=== PATIENT | female | born 1950 | race Caucasian/White ===

== ENCOUNTER 2018-01-18 17:21 | Emergency (ER) | payer MEDICARE, OTHER ==
[~2018-01-18] VITALS: Ht 165.1 cm; Wt 72.6 kg
[~2018-01-18 17:21] MED LIST: TYLENOL; Z.0.LOSARTAN POTASS2; Z.0.SYNTHROID88 MCG
[2018-01-18] MEDS ORDERED: KETOROLAC TROMETHAMINE 30 MG/ML VIAL IV STA (17:34)
[2018-01-18] MEDS ORDERED: SODIUM CHLORIDE 0.9% 1000ML 1,000 ML IV STA (17:34)
[2018-01-18] MEDS ORDERED: ASPIRIN 81 MG CHEW TAB PO ONE (17:45)
[2018-01-18 18:02] LABS: BASOPHILS % 0.5 % (0.0-1.0); EOSINOPHILS % 0.4 % (0.0-6.0); HEMATOCRIT 39.7 % (34.2-44.1); HEMOGLOBIN 13.7 g/dL (12.0-16.0); LYMPHOCYTES # (AUTO) 1.8 (1.0-3.2); LYMPHOCYTES % 23.2 % (18.0-39.1); MEAN CORPUSCULAR HEMOGLOBIN 28.3 pg (28-32); MEAN CORPUSCULAR HGB CONC 34.5 g/dL (31-35); MONOCYTES # (AUTO) 0.9 (0.2-0.8); MONOCYTES % 10.8 % (4.4-11.3); NEUTROPHILS # (AUTO) 4.8 (2.1-6.9); NEUTROPHILS % 61.7 % (38.7-80.0); PLATELET COUNT 329 x10e3/uL (140-360); RED BLOOD COUNT 4.84 x10e6/uL (3.6-5.1); RED CELL DISTRIBUTION WIDTH 13.4 % (11.7-14.4)
[2018-01-18 18:19] LABS: BILIRUBIN,URINE NEGATIVE (NEGATIVE); CLARITY,URINE CLEAR (CLEAR); COLOR,URINE YELLOW (YELLOW); KETONES,URINE NEGATIVE (NEGATIVE); LEUKOCYTE ESTERASE ,URINE NEGATIVE (NEGATIVE); NITRITE,URINE NEGATIVE (NEGATIVE); PROTEIN,URINE DIPSTICK NEGATIVE (NEGATIVE); URINE UROBILINOGEN 0.2 mg/dL (0.2 - 1)
[2018-01-18 18:22] LABS: ALANINE AMINOTRANSFERASE 17 IU/L (0-55); ALBUMIN 4.5 g/dL (3.5-5.0); ALBUMIN/GLOBULIN RATIO 1.3 (0.8-2.0); ALKALINE PHOSPHATASE 73 IU/L (40-150); ANION GAP 12.5 mmol/L (8-16); BLOOD UREA NITROGEN 13 mg/dL (7-26); BUN/CREATININE RATIO 16 (6-25); CALCIUM 9.6 mg/dL (8.4-10.2); CARBON DIOXIDE 28 mmol/L (22-29); CHLORIDE 102 mmol/L (98-107); CREATINE KINASE 58 IU/L (29-168); CREATININE, SERUM 0.81 mg/dL (0.57-1.11); EST GLOMERULAR FILTRATION RATE > 60 ML/MIN (60-); GLUCOSE 113 mg/dL (74-118); POTASSIUM 3.5 mmol/L (3.5-5.1); SODIUM 139 mmol/L (136-145)
[2018-01-18 18:30] LABS: BACTERIA,URINE RARE /HPF; EPITHELIAL CELLS,URINE FEW /LPF; MUCUS,URINE FEW (RARE); WBC,URINE (MAN) 0-5 /HPF (0-5)
--- NOTE | 2018-01-18 18:41 | Diagnostic Imaging Report ---
Exam: Head CT without contrast History: Dizziness, headache Comparison studies: Head CT of 11/08/2016 and 03/18/2009. Technique: Axial images were obtained from the skull base to the vertex. Coronal and sagittal images reconstructed from the axial data. Intravenous contrast: None Findings: Scalp: No abnormalities. Bones: No fractures, blastic or lytic lesions. Brain sulci: Mildly prominent. Ventricles: Mild compensatory dilatation no hydrocephalus. Extra-axial spaces: No masses, no fluid collection. Parenchyma: No mass, acute hemorrhage or acute cortical vascular insults. A few scattered hypodensities in the supratentorial white matter are nonspecific but most compatible with chronic small vessel ischemic changes. Hypodensities in the anterior limbs of the bilateral internal capsules, head of the right caudate nucleus, bilateral subinsular white matter and in the bifrontal superior frontal white matter reflect small chronic lacunar infarcts or possibly anatomical variant prominent perivascular spaces. Sellar/suprasellar region: No abnormalities. Craniocervical junction: Patent foramen magnum. No Chiari one malformation. Incidental findings: Atherosclerotic calcifications in the carotid siphons. IMPRESSION: No acute intracranial abnormalities. No changes from the previous head CT of 11/08/2016. Chronic findings: 1. Mild generalized volume loss. 2. Mild supratentorial microvascular ischemic changes. Signed by: Dr. Jh Bowen M.D. on 01/18/2018 6:38 PM
[2018-01-18] MEDS ORDERED: ACETAMINOPHEN 325 MG TAB PO ONE (19:15)
[2018-01-18 19:20] LABS: EOSINOPHILS % (MANUAL) 5 % (0-7); LYMPHOCYTES % (MANUAL) 18 % (19-48); MONOCYTES % (MANUAL) 11 % (3.4-9.0); NEUTROPHILS % (MANUAL) 63 % (40-74); PLATELET ESTIMATE ADEQUATE; PLATELET MORPHOLOGY COMMENT NORMAL; RBC MORPHOLOGY COMMENT NORMAL
[2018-01-18 19:35] VITALS: BP 168/85
== END 2018-01-18 19:37 | disposition home or self-care (01) ==
LOC: ER 17:21
DX: R42 Dizziness and giddiness (principal); R51 Headache
CPT/HCPCS: 36415; 70450; 80053; 81001; 82550; 82553; 84484; 85025; 93005; 99284; J1885; J7030

== ENCOUNTER → 2018-03-07 | Outpatient (CLI) | payer MEDICARE, OTHER ==
--- NOTE | 2018-03-07 13:16 | Diagnostic Imaging Report ---
PROCEDURE:US RETROPERITONEAL ( KIDNEY ). COMPARISON:Report from an MR CP 04/30/2014 was available for review.. INDICATIONS:Cyst Of Kidney TECHNIQUE: Cortez-scale and color sonographic images of the bilateral kidneys and bladder where obtained in transverse and longitudinal planes. FINDINGS: RIGHT KIDNEY: 11.4 cm in length, cortical thickness 1.5 cm Cysts: Minimally complex cyst with an echogenic focus along its wall measuring 1.4 x 1.3 x 1.6 cm. Simple cyst projecting exophytically from the lower pole measures 0.8 x 0.7 x 0.7 cm. Solid masses: None Stones: Suspected nonobstructing calculus measuring 0.4 cm within the renal sinus. Hydronephrosis: None Echogenicity: Normal renal cortical echogenicity. LEFT KIDNEY: 11.4 cm in length, cortical thickness 2.1 cm. Cysts: Simple cyst projecting from the upper pole measuring 6.7 x 6.5 x 6.6 cm, stable in size in comparison to the report from the MRCP performed at 2013. Additional simple cyst projects from the lower pole and measures 1.3 x 1.2 x 1.4 cm. Solid masses: None Stones: None Hydronephrosis: None Echogenicity: Normal renal cortical echogenicity. Bladder: Unremarkable. Right and left ureteral jets are identified. CONCLUSION: Bilateral renal cysts measuring up to 6.7 cm on the left. One of the right renal cysts is minimally complex, and followup renal ultrasound in one year should be considered to assess for stability. Dictated by: Jh Barrios M.D. on 03/07/2018 at 13:17 Electronically approved by: Jh Barrios M.D. on 03/07/2018 at 13:17
== END ==
LOC: US 11:42
PROVIDERS: ATTEND Urology
DX: N28.1 Cyst of kidney, acquired (principal)
CPT/HCPCS: 76770

== ENCOUNTER 2018-04-25 02:49 | Emergency (ER) | payer MEDICARE, OTHER ==
[~2018-04-25] VITALS: Ht 165.1 cm; Wt 72.6 kg
[2018-04-25] MEDS ORDERED: MECLIZINE HCL 12.5 MG TAB ONE (03:06)
[2018-04-25 03:10] LABS: BASOPHILS % 0.4 % (0.0-1.0); EOSINOPHILS # (AUTO) 0.1 (0.0-0.4); EOSINOPHILS % 0.7 % (0.0-6.0); HEMATOCRIT 38.5 % (34.2-44.1); HEMOGLOBIN 13.3 g/dL (12.0-16.0); LYMPHOCYTES # (AUTO) 1.4 (1.0-3.2); LYMPHOCYTES % 18.3 % (18.0-39.1); MEAN CORPUSCULAR HEMOGLOBIN 28.1 pg (28-32); MEAN CORPUSCULAR HGB CONC 34.5 g/dL (31-35); MEAN CORPUSCULAR VOLUME 81.4 fL (81-99); MONOCYTES # (AUTO) 0.7 (0.2-0.8); MONOCYTES % 9.5 % (4.4-11.3); NEUTROPHILS # (AUTO) 5.2 (2.1-6.9); NEUTROPHILS % 69.1 % (38.7-80.0); PLATELET COUNT 289 x10e3/uL (140-360); RED BLOOD COUNT 4.73 x10e6/uL (3.6-5.1); RED CELL DISTRIBUTION WIDTH 12.7 % (11.7-14.4)
[2018-04-25] MEDS ORDERED: MECLIZINE HCL 12.5 MG TAB PO ONE (03:15)
[2018-04-25 03:23] LABS: BILIRUBIN,URINE NEGATIVE (NEGATIVE); CLARITY,URINE CLEAR (CLEAR); COLOR,URINE YELLOW (YELLOW); KETONES,URINE 1+ (NEGATIVE); LEUKOCYTE ESTERASE ,URINE NEGATIVE (NEGATIVE); NITRITE,URINE NEGATIVE (NEGATIVE); PROTEIN,URINE DIPSTICK TRACE (NEGATIVE); URINE UROBILINOGEN 0.2 mg/dL (0.2 - 1)
[2018-04-25 03:25] LABS: EPITHELIAL CELLS,URINE FEW /LPF; WBC,URINE (MAN) 0-5 /HPF (0-5)
[2018-04-25 03:28] LABS: ALANINE AMINOTRANSFERASE 15 IU/L (0-55); ALBUMIN 4.4 g/dL (3.5-5.0); ALBUMIN/GLOBULIN RATIO 1.2 (0.8-2.0); ALKALINE PHOSPHATASE 95 IU/L (40-150); ANION GAP 16.1 mmol/L (8-16); BLOOD UREA NITROGEN 9 mg/dL (7-26); BUN/CREATININE RATIO 13 (6-25); CALCIUM 9.4 mg/dL (8.4-10.2); CARBON DIOXIDE 25 mmol/L (22-29); CHLORIDE 92 mmol/L (98-107); CREATINE KINASE 81 IU/L (29-168); CREATININE, SERUM 0.68 mg/dL (0.57-1.11); EST GLOMERULAR FILTRATION RATE > 60 ML/MIN (60-); GLUCOSE 147 mg/dL (74-118); POTASSIUM 3.1 mmol/L (3.5-5.1); SODIUM 130 mmol/L (136-145)
[2018-04-25] MEDS ORDERED: POTASSIUM CHLORIDE 20 MEQ TAB CR PO STA (03:39)
--- NOTE | 2018-04-25 04:26 | Diagnostic Imaging Report ---
EXAM: CHEST SINGLE (PORTABLE), AP 1 view INDICATION: DISI COMPARISON: None FINDINGS: LINES/TUBES: None LUNGS: Mild bibasilar atelectasis. PLEURA: No effusions or pneumothorax. HEART AND MEDIASTINUM: Normal size and contour. BONES AND SOFT TISSUES: No acute findings. IMPRESSION: Mild bibasilar atelectasis. Signed by: Dr. Maria Del Carmen Medrano M.D. on 04/25/2018 4:20 AM
--- NOTE | 2018-04-25 04:37 | Diagnostic Imaging Report ---
Examination: CT head without contrast Clinical Indication: Dizziness, nausea. Technique: Transaxial noncontrast images from the skull base through the vertex were obtained. Sagittal and coronal reformatted images were done. Comparison: Head CT dated 01/18/2018. Findings: Scalp: No abnormalities. Bones: Intact. No fractures. No blastic or lytic lesions. Brain sulci: Mild volume loss for patient's age. Ventricles: No hydrocephalus. Extra-axial space: No abnormalities. Parenchyma: Again demonstrated are patchy areas of low-attenuation within subcortical and periventricular white matter, nonspecific, but could represent microvascular ischemic disease. No masses, hemorrhage, or acute or chronic cortical based vascular insults. Suprasellar region: No abnormalities. Craniocervical junction: The foramen magnum is patent. No Chiari one malformation. Incidental findings: Atherosclerotic calcification of the cavernous and supraclinoid internal carotid arteries. Impression: 1. No new or acute intracranial finding. No change from prior head CT dated 01/18/2018. 2. Unchanged mild chronic microvascular ischemic change and volume loss. Signed by: Dr. Sandra Mendieta M.D. on 04/25/2018 4:34 AM
[2018-04-25 04:48] VITALS: BP 150/86
== END 2018-04-25 05:05 | disposition home or self-care (01) ==
LOC: ER 02:49
DX: R42 Dizziness and giddiness (principal); R11.0 Nausea; H81.11 Benign paroxysmal vertigo, right ear; I10 Essential (primary) hypertension; E03.9 Hypothyroidism, unspecified; E78.00 Pure hypercholesterolemia, unspecified
CPT/HCPCS: 36415; 70450; 71045; 80053; 81001; 82550; 82553; 84484; 85025; 93005; 99284

== ENCOUNTER → 2019-03-07 | Outpatient (CLI) | payer MEDICARE, OTHER ==
--- NOTE | 2019-03-07 16:39 | Diagnostic Imaging Report ---
EXAM: Renal Ultrasound INDICATION: Renal cyst. COMPARISON: Renal ultrasound 03/07/2018. CT abdomen/pelvis with contrast 12/30/2009. TECHNIQUE: Transverse and longitudinal images of the kidneys and bladder were obtained. FINDINGS: Right Kidney: Length: 11.3 cm, the renal cortex measures 1.1 cm Appearance: Normal echogenicity. Collecting system: No hydronephrosis Stones: None Cyst/Mass: Minimally complex right lower pole renal cyst with echogenic focus along the wall, measuring up to 1.5 x 1.3 x 1.6 cm, not significantly changed from prior ultrasound on 03/07/2018, when it measured 1.4 x 1.3 x 1.6 cm. No associated doppler flow. Simple appearing cyst in the right lower pole kidney, measuring up to 1.6 x 1.3 x 0.7 cm, increased in size from prior ultrasound, when measured 0.8 x 0.7 x 0.7 cm. No evidence of solid mass. Left Kidney: Length: 12.4 cm, the renal cortex measures 1.8 cm. Appearance: Normal echogenicity. Collecting system: No hydronephrosis Stones: None Cyst/Mass: Unchanged appearance of simple appearing cyst in the upper pole, measuring up to 6.8 x 6.7 x 5.9 cm, previously 6.7 x 6.5 x 6.6 cm. Similar appearance of left mid pole simple appearing cyst, measuring up to 1.3 x 1.0 x 1.8 cm, previously 1.3 x 1.2 x 1.4 cm, accounting for differences in technique. Bladder: Unremarkable in appearance. Bilateral ureteral jets are seen. The prevoid volume is 76 cc. No post void volume. IMPRESSION: Unchanged appearance of minimally complex right lower pole renal cyst. Follow-up ultrasound is suggested in one year to document stability. Additional bilateral simple appearing renal cysts, with interval increase in size of a right lower pole simple cyst. Signed by: Dr. Rich Villanueva MD on 03/07/2019 4:35 PM
== END ==
LOC: US 12:23
PROVIDERS: ATTEND Urology
DX: N28.1 Cyst of kidney, acquired (principal)
CPT/HCPCS: 76770

== ENCOUNTER → 2019-06-15 | Outpatient (CLI) | payer MEDICARE, OTHER ==
--- NOTE | 2019-06-15 11:36 | Diagnostic Imaging Report ---
Exam: KUB - 2 views Clinical History: Renal calculus Comparison: Renal ultrasound of 03/07/2019 Findings: No radiographically apparent renal calculi. Nonobstructive bowel gas pattern. No free air. Status post cholecystectomy. General changes of the lower lumbar spine and both hip joints. Phleboliths in the pelvis. Impression: No radiographically apparent renal calculi. Signed by: Niesha Jarvis MD on 06/15/2019 11:32 AM
== END ==
LOC: RAD 11:02
PROVIDERS: ATTEND Urology
DX: N20.0 Calculus of kidney (principal)
CPT/HCPCS: 74018

== ENCOUNTER 2020-06-22 18:25 | Emergency (ER) | payer MEDICARE, OTHER ==
[~2020-06-22] VITALS: Ht 165.1 cm; Wt 72.6 kg
[~2020-06-22 18:25] MED LIST changes: +CLOPIDOGREL75 MG PO; +LISINOPRIL10 MG PO; -TYLENOL; +TYLENOL PO
--- NOTE | 2020-06-22 18:43 | Emergency Department Note ---
History of Present Illnes History of Present Illness Chief Complaint: General Medicine Complaints History of Present Illness This is a 70 year old female Chief Complaint Comment DIZZY. STATES HX OF SAME. PT AAOX4. AMBULATORY. STATES THIS HAPPENS TO HER A LOT BECAUSE SHE DRINKS TOO MUCH WATER. STATES POTASSIUM AND SODIUM LOW. Historian: Patient Arrival Mode: Car Fifth Hand Required: No Onset (how long ago): day(s) (1) Location: Head Quality: Dizzy Radiation: Reports non-radiation Severity: mild Onset quality: unable to specify Duration (how long): day(s) (1) Timing of current episode: intermittent Progression: waxing and waning Chronicity: recurrent Context: Denies recent illness Relieving factors: none Exacerbating factors: none Associated symptoms: Reports denies other symptoms Treatments prior to arrival: none Past Medical/Family History Physician Review I have reviewed the patient's past medical and family history. Any updates have been documented here. Past Medical History Recent Fever: No Clinical Suspicion of Infectio: No New/Unexplained Change in Ment: No Past Medical History: Hypertension, TIA, Hypothyroidism, UTI's, Hyperlipedemia Other Medical History: CHRONIC BACK PAIN HIGH CHOLESTEROL Past Surgical History: Cholecysctectomy, Hysterectomy Other Surgery: Left foot surgery. Other Last Tetanus: UNKNOWN Physical Exam Related Data Allergies: Coded Allergies: adhesive tape (Verified Allergy, Intermediate, rash, 11/28/19) Triage Vital Signs Vital Signs Date Time Temp Pulse Resp B/P (MAP) Pulse Ox O2 Delivery O2 Flow Rate FiO2 06/22/20 18:33 98.1 101 16 185/97 98 Room Air Physical Exam CONSTITUTIONAL HENT EYES NECK PULMONARY CARDIOVASCULAR GASTROINTESTINAL GENITOURINARY SKIN MUSCULOSKELETAL NEUROLOGICAL PSYCHOLOGICAL Procedures 12 Lead ECG Interpretation ECG Interpretation : Fifth Hand: Interpreted by ED physician Date: Jun 22, 2020 Rhythm: sinus rhythm Rate: normal BPM: 77 QRS axis: normal ST segments normal: Yes T waves normal: Yes Clinical Impression: non-specific ECG Assessment & Plan Medical Decision Making MDM 70-year-old female who presents emergency department for lightheadedness. She states it is more lightheaded and not vertigo. She states she's had this before and was secondary to electrolyte abnormalities. She states she woke up this morning with it. She denies any focal neurologic deficits or other symptoms. She states her symptoms wax and wane and/or made worse by certain head positions. Initial differential significant for stroke versus electrolyte derangement versus orthostatic hypotension. Examination shows an overall well-appearing female in no acute distress, no focal neurologic deficits no other symptoms or significant exam findings. CT head is unremarkable and displays known NEGOTIATIONS DIRECTOR old stroke, nothing acute. Labs show no abnormalities. Doubt emergent process at this time. I discussed results patient as well as expected disease time course and management. They will follow up with their primary care provider or return to the emergency department for new or worsening symptoms. Patient's appropriate for discharge. Part of this note was dictated with Master and is subject to recognition errors. Reassessment Reassessment time: 19:53 Reassessment Well appearing, NAD Assessment & Plan Final Impression: (1) Light headed Depart Disposition: HOME, SELF-CARE Last Vital Signs Date Time Temp Pulse Resp B/P (MAP) Pulse Ox O2 Delivery O2 Flow Rate FiO2 06/22/20 18:33 98.1 101 16 185/97 98 Room Air Home Meds Reported Medications Lisinopril (LISINOPRIL) 10 Mg Tablet, 20 MG PO DAILY 11/28/19 Clopidogrel Bisulfate (CLOPIDOGREL) 75 Mg Tablet, 75 MG PO DAILY 11/28/19 [Tylenol] No Conflict Check, 325 MG PO BID PRN for Mild Pain (1-3) or Fever>100.8 12/27/11 Levothyroxine Sodium (Synthroid) 88 Mcg Tablet 12/27/11 HERNAN ÁLVAREZ MD Jun 22, 2020 18:43
[2020-06-22 19:08] LABS: BASOPHILS % 0.3 % (0.0-1.0); EOSINOPHILS % 0.6 % (0.0-6.0); HEMATOCRIT 40.1 % (34.2-44.1); HEMOGLOBIN 13.3 g/dL (12.0-16.0); LYMPHOCYTES # (AUTO) 1.4 (1.0-3.2); LYMPHOCYTES % 19.6 % (18.0-39.1); MEAN CORPUSCULAR HEMOGLOBIN 28.2 pg (28-32); MEAN CORPUSCULAR HGB CONC 33.2 g/dL (31-35); MONOCYTES % 13.7 % (4.4-11.3); NEUTROPHILS # (AUTO) 4.5 (2.1-6.9); NEUTROPHILS % 63.6 % (38.7-80.0); PLATELET COUNT 346 x10e3/uL (140-360); RED BLOOD COUNT 4.72 x10e6/uL (3.6-5.1); RED CELL DISTRIBUTION WIDTH 13.8 % (11.7-14.4)
[2020-06-22 19:27] LABS: ALANINE AMINOTRANSFERASE 12 IU/L (0-55); ALBUMIN/GLOBULIN RATIO 1.4 (0.8-2.0); ALKALINE PHOSPHATASE 78 IU/L (40-150); ANION GAP 15.9 mmol/L (8-16); BLOOD UREA NITROGEN 15 mg/dL (7-26); BUN/CREATININE RATIO 23 (6-25); CALCIUM 9.3 mg/dL (8.4-10.2); CARBON DIOXIDE 22 mmol/L (22-29); CHLORIDE 105 mmol/L (98-107); CREATININE, SERUM 0.66 mg/dL (0.57-1.11); EST GLOMERULAR FILTRATION RATE > 60 ML/MIN (60-); GLUCOSE 109 mg/dL (74-118); POTASSIUM 3.9 mmol/L (3.5-5.1); SODIUM 139 mmol/L (136-145)
[2020-06-22 20:07] LABS: BILIRUBIN,URINE NEGATIVE (NEGATIVE); CLARITY,URINE HAZY (CLEAR); COLOR,URINE YELLOW (YELLOW); KETONES,URINE NEGATIVE (NEGATIVE); LEUKOCYTE ESTERASE ,URINE SMALL (NEGATIVE); NITRITE,URINE NEGATIVE (NEGATIVE); PROTEIN,URINE DIPSTICK NEGATIVE (NEGATIVE); URINE UROBILINOGEN 0.2 mg/dL (0.2 - 1)
--- NOTE | 2020-06-22 20:08 | Diagnostic Imaging Report ---
Exam: Head CT without contrast History: Dizziness, lightheaded Comparison studies: Multiple prior head CTs which date to 11/08/2016, most recent of 04/25/2018. Technique: Axial images were obtained from the skull base to the vertex. Coronal and sagittal images reconstructed from the axial data. Dose modulation, iterative reconstruction, and/or weight based adjustment of the mA/kV was utilized to reduce the radiation dose to as low as reasonably achievable. Radiation dose: Total DLP: 921.4 mGy*cm. Estimated effective dose: DLP x 0.015 Intravenous contrast: None Findings: Scalp: No abnormalities. Bones: No fractures, blastic or lytic lesions. Brain sulci: Mildly prominent Ventricles: Mild compensatory dilatation. No hydrocephalus. Extra-axial spaces: No masses, no fluid collection. Parenchyma: No mass, acute hemorrhage or acute cortical vascular insult. Chronic infarct with encephalomalacia and gliosis in the left occipital lobe and left occipitotemporal region in the left CRUTCHING CONTRACTOR territory is more conspicuous on the current exam. A few scattered hypodensities in the supratentorial white matter are nonspecific but are most compatible with chronic microvascular ischemic changes. Small chronic lacunar infarct present in the right inferior paramedian janett which was not visualized on prior exams. A few additional scattered hypodensities which are unchanged such as that within the bilateral superior frontal subcortical white matter, within the bilateral basal ganglia, anterior limbs of internal capsules and bilateral subinsular white matter are most likely prominent perivascular spaces. Superimposed small chronic lacunar infarcts to BE difficult to exclude in this setting. Sellar/suprasellar region: No abnormalities. Craniocervical junction: Patent foramen magnum. No Chiari one malformation. Incidental findings: Atherosclerotic calcifications in the carotid siphons. IMPRESSION: No acute intracranial abnormalities. Chronic findings: 1. Mild generalized parenchymal volume loss. 2. Chronic infarct in the left CRUTCHING CONTRACTOR territory. 3. Mild chronic microvascular ischemic changes with chronic pontine lacunar infarct. Signed by: Dr. Jh Bowen M.D. on 06/22/2020 8:05 PM
[2020-06-22 20:09] LABS: BACTERIA,URINE FEW /HPF; EPITHELIAL CELLS,URINE MODERATE /LPF; RBC,URINE 0-5 /HPF (0-5); WBC,URINE (MAN) 0-5 /HPF (0-5)
--- OUTSIDE RECORDS SUMMARY | 2020-06-22 20:26 | XMS REPORT ---
Author Author KAYA Caraballo Organization Unknown Address Unknown Phone Care Team Providers Care Pbx Manager Name Role Phone Lucero Caraballo PP Unavailable Reason for Referral No Reason for Referral was given. History of Present Illness No HPI available. Problems * Hypothyroidism (244.9); (Active) * Hypertension (401.9); (Active) * Normal Routine History And Physical Senior Citizen (65-80) (V70.0); ( Active) Medication * Synthroid 88 MCG Oral Tablet; TAKE 1 TABLET DAILY. (Active) * Losartan Potassium 25 MG Oral Tablet; TAKE 1 TABLET DAILY. (Active) Allergies and Adverse Reactions * No Known Drug Allergies (Active) Past Medical History * History of Back Pain (724.5); (Resolved) * History of Bronchitis (490); (Resolved) * History of Vertigo (780.4); (Resolved) * History of Hypertension (401.9); (Resolved) * History of Hypothyroidism (244.9); (Resolved) Procedures Procedure Procedure Date Date Completed Status Hysterectomy - - Resolved Cholecystectomy - - Resolved Immunization * Influenza - Administered on: 10/11/2012 * Pneumo - Administered on: 08/30/2008 * Fluzone Intramuscular Injectable (Lot #: [id number]) - Administered on: 08/25/2013 * Zoster (Zostavax) (Lot #: [id number]) - Administered on: 08/25/2013 Family History * Maternal history of Breast Cancer (V16.3); (Active) Social History * Marital History - Currently (Active) * Being A Social Drinker (Active) * Never A Smoker (Active) Advance Directives * No Advance Directives available. Encounters * AUDIT 08/25/2013
--- OUTSIDE RECORDS SUMMARY | 2020-06-22 20:26 | XMS REPORT | Continuity of Care Document ---
Author Author [facility] t Organization [facility] Address [address] [place] [address] Phone Unavailable Care Team Providers Care Shop Hand Name Role Phone Iron NUNES PCP Iron Earl Attphys Unavailable Deja THOMAS Attphys Unavailable Doctor Unassigned, Name No Attphys Unavailable Cristhian TAYLOR, Mena Attphys Ismael HUDSON, Mehreen Attphys Susan Van Attphys GEOVANNY MULLINS Attphys Unavailable Ld KHAN Attphys Unavailable Med HICKEY Attphys Unavailable Susan Van Admphys Payers Payer Name Policy Type Policy Number Effective Date Expiration Date kayode Medicare A & B [id number] 2013 00:00:00 [facility] [employer] o [id number] 2000 00:00:[address] [facility] [place] [place] Problems Condition Name Condition Details Condition Category Status Onset Date Resolution Date Last Treatment Date Treating Clinician Comments Source Dehydration Dehydration Problem Active [facility] Dizziness Dizziness Problem Active [facility] Hyponatremia Hyponatremia Problem Active [facility] Vomiting Vomiting Problem Active [facility] [place] [place] Hypertension Hype rtension Active 03/15/2014 [facility] Problem Active 2014-03-15 17:47:10 Richard bhavesh Ashvin Hypothyroidism Hypo thyroidism Active 03/15/2014 [facility] Problem Active 2014-03-15 17:47:10 [facility] Cervicalgia Cerv icalgia Active 03/15/2014 [facility] Problem Active 2014-03-15 17:47:10 Mateusz Lock Allergies, Adverse Reactions, Alerts Allergy Name Allergy Type Status Severity Reaction(s) Onset Date Inacti ve Date Treating Clinician Comments Source adhesive tape Allergy to Substance Active Moderate rash 2019-11-28 0 0:00:00 [facility] No Known Contrast Allergies DA Active U 2009-03-20 00:00: 00 [facility] No Known Drug Allergies DA Active U 2009-03-20 00:00:00 [facility] No Known Food Allergies DA Active U 2009-03-20 00:00:00 [facility] No Known Other Allergies DA Active U 2009-03-20 00:00:00 [facility] No Known Drug Intolerances DA Active U 2001-07-05 00:00:0 0 [facility] No Known Drug Allergies No Known Drug Allergies Active Mateusz Lock Family History Family Member Diagnosis Comments Start Date Stop Date Source Unknown Family Member Family History 2013-08-25 15:02:43 2 15:02:43 Mateusz Lock Social History Social Habit Start Date Stop Date Quantity Comments Source Social History 2014-03-15 17:47:10 2014-03-15 17:47:10 Mateusz Lock Medications Ordered Medication Name Filled Medication Name Start Date Stop Da te Current Medication? Ordering Clinician Indication Dosage Frequency Signature (SIG) Comments Components Source Tylenol TABS 2014-03-15 17:47:10 Yes (Activ e) Mateusz Lock Metaxalone 800 MG Oral Tablet 2014-01-12 06:00:00 Yes ; Start Date: 01/12/2014; End Date: (Active) Mateusz Lock Dexamethasone 4 MG Oral Tablet 2014-01-12 06:00:00 Yes ; Start Date: 01/12/2014; End Date: 01/22/2014 (Active) Mateusz Lock TraMADol HCl 50 MG Oral Tablet 2014-01-12 06:00:00 Yes ; Start Date: 01/12/2014; End Date: (Active) Mateusz Lock Synthroid 88 MCG Oral Tablet 2013-08-31 21:36:24 Yes (Active) Mateusz Lock Losartan Potassium 25 MG Oral Tablet 2013-08-25 15:02:43 Ye s (Active) Mateusz Milroy Levothyroxine Sodium 88 MCG Oral Tablet Yes ; Start Date: ; End Date: (Active) Mateusz Ashvin Losartan Potassium 25 MG Oral Tablet Ye s ; Start Date: ; End Date: (Active) [facility] Bisulfate (Clopidogrel) 75 Mg Tablet Clopi dogrel Bisulfate (Clopidogrel) 75 Mg Tablet Yes 75 Daily [facility] Levothyroxine Sodium (Synthroid) 88 Mcg Tablet Levothy roxine Sodium (Synthroid) 88 Mcg Tablet Yes [facility] Lisinopril 10 Mg Tablet Lisinopril 10 Mg Tablet Yes 20 Daily [facility] Tylenol Tylenol Yes 325 Twice A Day as needed for Mild Pain (1-3) Or Fever>100.8 [facility] Losartan Potassium 25 Mg Tablet, Losartan Potassium 25 Mg Tablet , 2019-11-28 00:00:00 No [facility] Procedures Procedure Date / Time Performed Performing Clinician [facility] e Ultrasound, renal 2019-03-07 00:00:00 GEOVANNY MULLINS [facility] Plan of Care Planned Activity Planned Date Details Comments Source Future Scheduled Test 2013-11-16 19:47:53 Plan of Care [code = 1877 6-5] Mateusz Lock Encounters Start Date/Time End Date/Time Encounter Type Admission Type Attendi [facility] Care Department Encounter ID Source 2019-11-28 15:34:00 2019-11-30 16:28:00 Discharged Inpatient 1 MIKHAIL THOMAS [facility] [id number] [facility] 2019-07-12 00:00:00 2019-07-12 00:00:00 Orders Only D sherry Unassigned, [place] [facility] [id number] 2019-07-05 00:00:00 2019-07-05 00:00:00 Transition of Care Mena Morrow [id number] 2019-06-30 17:16:25 2019-07-04 14:00:00 [facility] [id number] 2019-06-15 11:02:00 2019-06-15 11:02:00 Registered Clinic 3 TANG BREANNKATIUSKA [facility] [id number] [facility] 2019-03-07 12:23:00 2019-03-07 12:23:00 Registered Clinic 3 CLYDE PATEL [facility] [id number] [facility] 2018-04-25 02:49:00 2018-04-25 05:05:00 Departed Emergency Room 1 VANCE KHAN [facility] [id number] [facility] 2018-03-07 11:42:00 2018-03-07 11:42:00 Registered Clinic [place] CLYDE PATEL [facility] [id number] [facility] 2018-01-18 17:21:00 2018-01-18 19:37:00 Departed Emergency Room ER CAMELIA HICKEY [facility] [id number] [facility] 2014-03-15 12:47:10 2014-03-15 12:47:10 Outpatient MHIE MHIE [id number] 2014-01-12 16:48:41 2014-01-12 16:48:41 Outpatient [facility]IE IE [id number] 2013-11-24 12:47:02 2013-11-24 12:47:01 Outpatient [facility]IE IE [id number] 2013-11-17 11:34:12 2013-11-17 11:34:12 Outpatient MHIE IE [id number] 2013-11-16 13:47:53 2013-11-16 13:47:53 Outpatient [facility]IE IE [id number] 2013-11-14 17:03:06 2013-11-14 17:03:06 Outpatient MHIE IE [id number] 2013-08-31 16:36:24 2013-08-31 16:36:24 Outpatient IE IE [id number] 2013-08-25 10:02:43 2013-08-25 10:02:43 Outpatient IE [id number] Results Test Description Test Time Test Comments Results Result Comments Source CT BRAIN WO 2020-06-22 19:52:00 [place] [address] Patient Name: KAYA KESSLER MR #: [id number] : 1950 Age/Sex: 70/F Req #: [id number] [facility] Physician: Ordered by: Hernan Earl MD Report #: [id number] Location: Room/Bed: Procedure: [id number] CT/CT BRAIN WO Exam Date: 06/22/20 Exam Time: 1908 REPORT STATUS: Signed Exam: Head CT without contrast History: Dizziness, lightheaded Comparison studies: Multiple prior head CTs which date to 11/08/2016, most recent of 04/25/2018. Technique: Axial images were obtained from the skull base to the vertex. Coronal and sagittal images reconstructed from the axial data. Dose modulation, iterative reconstruction, and/or weight based adjustment of the mA/kV was utilized to reduce the radiation dose to as low as reasonably achievable. Radiation dose: Total DLP: 921.4 mGy*cm. Estimated effective dose: DLP x 0.015 Intravenous contrast: None Findings: Scalp: No abnormalities. Bones: No fractures, blastic or lytic lesions. Brain sulci: Mildly prominent Ventricles: Mild compensatory dilatation. No hydrocephalus. Extra-axial spaces: No masses, no fluid collection. Parenchyma: No mass, acute hemorrhage or acute cortical vascular insult. Chronic infarct with encephalomalacia and gliosis in the left occipital lobe and left occipitotemporal region in the left SHADING PAINTER territory is more conspicuous on the current exam. A few scattered hypodensities in the supratentorial white matter are nonspecific but are most compatible with chronic microvascular ischemic changes. Small chronic lacunar infarct present in the right inferior paramedian janett which was not visualized on prior exams. A few additional scattered hypodensities which are unchanged such as that within the bilateral superior frontal subcortical white matter, within the bilateral basal ganglia, anterior limbs of internal capsules and bilateral subinsular white matter are most likely prominent perivascular spaces. Superimposed small chronic lacunar infarcts to BE difficult to exclude in this setting. Sellar/suprasellar region: No abnormalities. Craniocervical junction: Patent foramen magnum. No C hiari one malformation. Incidental findings: Atherosclerotic calcifications in the carotid siphons. IMPRESSION: No acute intracranial abnormalities. Chronic findings: 1. Mild generalized parenchymal volume loss. 2. Chronic infarct in the left SHADING PAINTER territory. 3. Mild chronic microvascular ischemic changes with chronic pontine lacunar infarct. Signed by: Dr. Hellen Hightower M.D. on 06/22/2020 8:05 PM Dictated By: HELLEN HIGHTOWER MD 04 Transcribed By: FAITH on 06/22/202004 COPY TO: HERNAN BRYANT MD Sodium Level 2019-11-30 06:37:00 Test Item Sodium Level (test code = 2951-2) 135 136-145 L [facility] Uziry8977-76-38 06:37:00* Test Item Value Reference Range Interpretation Comments Potassium Level (test code = 2823-3) 3.4 3.5-5.1 L [facility] HospitalChloride Iolba2029-96-93 06:37:00* Test Item Value Reference Range Interpretation Comments Chloride Level (test code = 2075-0) 101 98-107 [facility] HospitalCarbon Dioxide Mlbzd9561-11-75 06:37:00* Test Item Value Reference Range Interpretation Comments Carbon Dioxide Level (test code = 2028-9) 25 22-29 [facility] HospitalAnion [id number] 06:37:00* Test Item Value Reference Range Interpretation Comments Anion Gap (test code = 32479-4) 12.4 8-16 [facility] HospitalBlood Urea Ukbjglth0133-51-26 06:37:00* Test Item Value Reference Range Interpretation Comments Blood Urea Nitrogen (test code = 3094-0) 9 7-26 [facility] HospitalCreatinine2020-01-23 06:37:00* Test Item Value Reference Range Interpretation Comments Creatinine (test code = 2160-0) 0.60 0.57-1.11 [facility] HospitalBUN/Creatinine Hxjxu0577-15-89 06:37:00* Test Item Value Reference Range Interpretation Comments BUN/Creatinine Ratio (test code = 3097-3) 15 6-25 [facility] HospitalEstimat Glomerular Filtration Rate 2019-11-30 06:37:00* Test Item Value Reference Range Interpretation Comments Estimat Glomerular Filtration Rate (test code = 427429994) > 60 >60 Ranges were taken from the National Kidney Disease Education Program and the [facility] literature.Reference ranges:60 or greater: Ewrfrc08-65 ( for 3 consecutive months): Chronic kidney disease 15 or less: Kidney failureC[facility] Emergency HospitalGlucose Qfccq9996-02-42 06:37:00* Test Item Value Reference Range Interpretation Comments Glucose Level (test code = RUB5020) 103 74-118 [facility] HospitalCalcium Eahsc0271-85-92 06:37:00* Test Item Value Reference Range Interpretation Comments Calcium Level (test code = 25489-0) 9.0 8.4-10.2 [facility] HospitalTotal Kdxihmang5624-92-91 06:37:00* Test Item Value Reference Range Interpretation Comments Total Bilirubin (test code = 1975-2) 0.4 0.2-1.2 [facility] HospitalAspartate Amino Transf (AST/SGOT) 2019-11-30 06:37:00* Test Item Value Reference Range Interpretation Comments Aspartate Amino Transf (AST/SGOT) (test code = Aspartate Amino Transf (AST/SGOT)) 17 5-34 [facility] HospitalAlanine Aminotransferase (ALT/SGPT) 2019-11-30 06:37:00* Test Item Value Reference Range Interpretation Comments Alanine Aminotransferase (ALT/SGPT) (test code = 1742-6) 14 0-55 [facility] HospitalTotal Twbciak3165-70-23 06:37:00* Test Item Value Reference Range Interpretation Comments Total Protein (test code = 2885-2) 6.2 6.5-8.1 L [facility] HospitalAlbumin2020-01-23 06:37:00* Test Item Value Reference Range Interpretation Comments Albumin (test code = 1751-7) 3.6 3.5-5.0 [facility] HospitalGlobulin2020-01-23 06:37:00* Test Item Value Reference Range Interpretation Comments Globulin (test code = 34077-1) 2.6 2.3-3.5 [facility] HospitalAlbumin/Globulin Eswsa9983-06-65 06:37:00 * Test Item Value Reference Range Interpretation Comments Albumin/Globulin Ratio (test code = 1759-0) 1.4 0.8-2.0 [facility] HospitalAlkaline Ytvmoxynbzn0233-15-49 06:37:00* Test Item Value Reference Range Interpretation Comments Alkaline Phosphatase (test code = 6768-6) 70 40-150 [facility] HospitalCreatine Kinase [id number] 15:01:00* Test Item Value Reference Range Interpretation Comments Creatine Kinase MB (test code = 15113-5) 3.60 0-5.0 [facility] HospitalTroponin [id number] 15:01:00* Test Item Value Reference Range Interpretation Comments Troponin I (test code = KCW6041) 0.037 0-0.300 [facility] HospitalUrine Random Total Etedjxb4592-44-41 14:55:00* Test Item Value Reference Range Interpretation Comments Urine Random Total Protein (test code = 2888-6) 10.8 1-14 [facility] HospitalUrine Random Pzavhu6839-39-41 14:55:00* Test Item Value Reference Range Interpretation Comments Urine Random Sodium (test code = 2955-3) < 20 [facility] HospitalUrine Gdhhjrbqsv4921-11-79 14:55:00* Test Item Value Reference Range Interpretation Comments Urine Creatinine (test code = 2161-8) 76.44 47-110 [facility] HospitalUrine Protein/Creatinine Eerku5608-96-27 14:55:00* Test Item Value Reference Range Interpretation Comments Urine Protein/Creatinine Ratio (test code = 81421-6) 0.00 [facility] HospitalCreatine Omdodn2843-69-81 14:51:00* Test Item Value Reference Range Interpretation Comments Creatine Kinase (test code = 2157-6) 137 29-168 [facility] HospitalUric Ixxp6428-80-12 12:41:00* Test Item Value Reference Range Interpretation Comments Uric Acid (test code = 3084-1) 2.7 2.6-8.0 [facility] HospitalHemoglobin A1c Sgzpxsj7101-00-73 12:31:00 * Test Item Value Reference Range Interpretation Comments Hemoglobin A1c Percent (test code = Hemoglobin A1c Percent) 5.2 4.0-7.0 [facility] HospitalThyroid Stimulating Hormone (TSH) 2019-11-29 09:56:00* Test Item Value Reference Range Interpretation Comments Thyroid Stimulating Hormone (TSH) (test code = 08386-7) 1.554 0.350-4.940 [facility] HospitalWhite Blood Ytjyn7504-01-90 06:21:00* Test Item Value Reference Range Interpretation Comments White Blood Count (test code = 6690-2) 7.22 4.8-10.8 [facility] HospitalRed Blood Wfedb4757-51-32 06:21:00* Test Item Value Reference Range Interpretation Comments Red Blood Count (test code = 789-8) 4.34 3.6-5.1 [facility] HospitalHemoglobin2020-01-22 06:21:00* Test Item Value Reference Range Interpretation Comments Hemoglobin (test code = 41260-2) 12.4 12.0-16.0 [facility] HospitalHematocrit2020-01-22 06:21:00* Test Item Value Reference Range Interpretation Comments Hematocrit (test code = 4544-3) 34.8 34.2-44.1 [facility] HospitalMean Corpuscular Xgktio9233-26-69 06:21:00* Test Item Value Reference Range Interpretation Comments Mean Corpuscular Volume (test code = 787-2) 80.2 81-99 L [facility] HospitalMean Corpuscular Digvtpfafc4844-96-75 06:21:00* Test Item Value Reference Range Interpretation Comments Mean Corpuscular Hemoglobin (test code = 785-6) 28.6 28-32 [facility] HospitalMean Corpuscular Hemoglobin Concent 2019-11-29 06:21:00* Test Item Value Reference Range Interpretation Comments Mean Corpuscular Hemoglobin Concent (test code = 786-4) 35.6 31-35 H [facility] HospitalRed Cell Distribution Cybux8815-28-97 06:21:00* Test Item Value Reference Range Interpretation Comments Red Cell Distribution Width (test code = 39043-1) 12.9 11.7 -14.4 [facility] HospitalPlatelet Zcphd1808-60-45 06:21:00* Test Item Value Reference Range Interpretation Comments Platelet Count (test code = 777-3) 290 140-360 [facility] HospitalNeutrophils (%) (Auto)2019-11-29 06:21:00 * Test Item Value Reference Range Interpretation Comments Neutrophils (%) (Auto) (test code = 77478-9) 65.0 38.7-80.0 [facility] HospitalLymphocytes (%) (Auto)2019-11-29 06:21:00 * Test Item Value Reference Range Interpretation Comments Lymphocytes (%) (Auto) (test code = 736-9) 15.1 18.0-39.1 L [facility] HospitalMonocytes (%) (Auto)2019-11-29 06:21:00* Test Item Value Reference Range Interpretation Comments Monocytes (%) (Auto) (test code = 5905-5) 16.5 4.4-11.3 H [facility] HospitalEosinophils (%) (Auto)2019-11-29 06:21:00 * Test Item Value Reference Range Interpretation Comments Eosinophils (%) (Auto) (test code = 713-8) 0.6 0.0-6.0 [facility] HospitalBasophils (%) (Auto)2019-11-29 06:21:00* Test Item Value Reference Range Interpretation Comments Basophils (%) (Auto) (test code = 706-2) 0.3 0.0-1.0 [facility] HospitalIM GRANULOCYTES %2019-11-29 06:21:00* Test Item Value Reference Range Interpretation Comments IM GRANULOCYTES % (test code = IM GRANULOCYTES %) 2.5 0.0- 1.0 H [facility] HospitalNeutrophils # (Auto)2019-11-29 06:21:00* Test Item Value Reference Range Interpretation Comments Neutrophils # (Auto) (test code = 751-8) 4.7 2.1-6.9 [facility] HospitalLymphocytes # (Auto)2019-11-29 06:21:00* Test Item Value Reference Range Interpretation Comments Lymphocytes # (Auto) (test code = 11332-4) 1.1 1.0-3.2 [facility] HospitalMonocytes # (Auto)2019-11-29 06:21:00* Test Item Value Reference Range Interpretation Comments Monocytes # (Auto) (test code = 742-7) 1.2 0.2-0.8 H [facility] HospitalEosinophils # (Auto)2019-11-29 06:21:00* Test Item Value Reference Range Interpretation Comments Eosinophils # (Auto) (test code = 711-2) 0.0 0.0-0.4 [facility] HospitalBasophils # (Auto)2019-11-29 06:21:00* Test Item Value Reference Range Interpretation Comments Basophils # (Auto) (test code = 704-7) 0.0 0.0-0.1 [facility] HospitalAbsolute Immature Granulocyte (auto 2019-11-29 06:21:00* Test Item Value Reference Range Interpretation Comments Absolute Immature Granulocyte (auto (anish t code = Absolute Immature Granulocyte (auto) 0.18 0-0.1 H [facility] HospitalUrine [id number] 14:12:00* Test Item Value Reference Range Interpretation Comments Urine WBC (test code = 5821-4) 0-5 0-5 [facility] HospitalUrine [id number] 14:12:00* Test Item Value Reference Range Interpretation Comments Urine RBC (test code = 83512-1) 6-10 0-5 H [facility] HospitalUrine Gntyyapi5470-02-83 14:12:00* Test Item Value Reference Range Interpretation Comments Urine Bacteria (test code = 23714-2) MODERATE NONE H [facility] HospitalUrine Epithelial Hscif5405-79-03 14:12:00 * Test Item Value Reference Range Interpretation Comments Urine Epithelial Cells (test code = 60545-5) MODERATE NONE [facility] HospitalUrine Jupox4748-46-60 13:38:00* Test Item Value Reference Range Interpretation Comments Urine Color (test code = 5778-6) YELLOW YELLOW [facility] HospitalUrine Fyrsewx6676-24-30 13:38:00* Test Item Value Reference Range Interpretation Comments Urine Clarity (test code = 12666-9) CLEAR CLEAR [facility] HospitalUrine Specific Wuenkzd9374-53-30 13:38:00 * Test Item Value Reference Range Interpretation Comments Urine Specific Monona (test code = 5811-5) 1.025 1.010-1.02 5 [facility] HospitalUrine [id number] 13:38:00* Test Item Value Reference Range Interpretation Comments Urine pH (test code = 07746-3) 7 5-7 [facility] HospitalUrine Leukocyte Jbfdwplh8203-67-70 13:38:00* Test Item Value Reference Range Interpretation Comments Urine Leukocyte Esterase (test code = 5799-2) NEGATIVE NEGATIVE [facility] HospitalUrine Neuffav6313-77-59 13:38:00* Test Item Value Reference Range Interpretation Comments Urine Nitrite (test code = 16591-1) NEGATIVE NEGATIVE [facility] HospitalUrine Bfnvafk0416-68-55 13:38:00* Test Item Value Reference Range Interpretation Comments Urine Protein (test code = 5804-0) 1+ NEGATIVE H [facility] HospitalUrine Glucose (UA)2019-11-28 13:38:00* Test Item Value Reference Range Interpretation Comments Urine Glucose (UA) (test code = 2349-9) NEGATIVE NEGATIVE [facility] HospitalUrine Uyszqqs0304-24-69 13:38:00* Test Item Value Reference Range Interpretation Comments Urine Ketones (test code = 44260-9) 1+ NEGATIVE H [facility] HospitalUrine Uovdowwztxhz5841-60-20 13:38:00* Test Item Value Reference Range Interpretation Comments Urine Urobilinogen (test code = 30230-9) 0.2 0.2-1 [facility] HospitalUrine Eqpmmkuwx9328-06-14 13:38:00* Test Item Value Reference Range Interpretation Comments Urine Bilirubin (test code = 1978-6) NEGATIVE NEGATIVE [facility] HospitalUrine Irrlk2490-93-86 13:38:00* Test Item Value Reference Range Interpretation Comments Urine Blood (test code = 45678-2) 1+ NEGATIVE [facility] HospitalDifferential Total Cells Counted 2019-11-28 13:13:00* Test Item Value Reference Range Interpretation Comments Differential Total Cells Counted (test code = Differen tial Total Cells Counted) 100 [facility] HospitalNeutrophils % (Manual)2019-11-28 13:13:00 * Test Item Value Reference Range Interpretation Comments Neutrophils % (Manual) (test code = 97301-5) 81 40-74 H [facility] HospitalLymphocytes % (Manual)2019-11-28 13:13:00 * Test Item Value Reference Range Interpretation Comments Lymphocytes % (Manual) (test code = 737-7) 10 19-48 L [facility] HospitalMonocytes % (Manual)2019-11-28 13:13:00* Test Item Value Reference Range Interpretation Comments Monocytes % (Manual) (test code = 744-3) 9 3.4-9.0 [facility] HospitalNucleated Red Blood Kveig0368-25-59 13:13:00* Test Item Value Reference Range Interpretation Comments Nucleated Red Blood Cells (test code = 70191-1) NO EDTA PLT CLUMPS SEEN [facility] HospitalPlatelet Nofcxlog0611-98-15 13:13:00* Test Item Value Reference Range Interpretation Comments Platelet Estimate (test code = 87397-1) MODERATELY INCREASED [facility] HospitalPlatelet Morphology Emokyju6653-47-25 13:13:00* Test Item Value Reference Range Interpretation Comments Platelet Morphology Comment (test code = 05784-7) FEW LARGE [facility] HospitalProthrombin Rzsg4375-46-04 11:59:00* Test Item Value Reference Range Interpretation Comments Prothrombin Time (test code = 5902-2) 11.8 11.9-14.5 L [facility] HospitalProthromb Time International Ratio 2019-11-28 11:59:00* Test Item Value Reference Range Interpretation Comments Prothromb Time International Ratio (test code = 6301-6) 0.82 Oral Anticoagulant Therapy INR Values:1. Low Intensity Therapy 1.5 - 2.02 . Moderate Intensity Therapy 2.0 - 3.03. High Intensity Therapy(1) 2.5 - 3. 54. High Intensity Therapy(2) 3.0 - 4.05. Panic Value INR > 5.0 [facility] HospitalActivated Partial Thromboplast Time 2019-11-28 11:59:00* Test Item Value Reference Range Interpretation Comments Activated Partial Thromboplast Time (test code = 82809-3) 31.9 23.8-35.5 [facility] HospitalCHEST SINGLE (PORTABLE)2019-11-28 11:07:00 [facility] [address] [address] Patient Name: KAYA KESSLER MR #: [id number] : 1950 Age/Sex: 69/F Req #: [id number] Adm Physician: Ordered by: ROSANA VILLAGOMEZ NP Report #: [id number] Location: ER Room/Bed: Procedure: [id number] DX /CHEST SINGLE (PORTABLE) Exam Date: Exam Time: REPORT STATUS: Signed EXAMINATION: CHEST SINGLE (PORTABLE) INDICATION: Nausea, vomiting, back pain C OMPARISON: Chest radiograph 04/25/2018 FINDINGS: LINES/TUBES:None LUNGS:The lungs are well-inflated. Mild patchy opacity at the left lung bas e, also present on the prior study of 04/25/2018, likely subsegmental atelectas is. PLEURA:No pleural effusion or pneumothorax. MEDIASTINUM:The cardi omediastinal silhouette appears normal in size and shape. BONES/SOFT TISSUE S:No acute osseous injury. ABDOMEN:No free air under the diaphragm. IMPRESSION: Left basilar subsegmental atelectasis. No focal pneumonia or pul monary edema. Signed by: Jovi Luna MD on 11/28/2019 11:09 AM Dictat ed By: JOVI LUNA MD 08 Transcribed By: FAITH on 11/28/191108 COPY TO: ROSANA VILLAGOMEZ NP ABDOMEN-1VIEW (KUB)2019-06-15 11:31:00 [place] [address] Patient Name: KAYA KESSLER MR #: [id number] : 1950 Age/Sex: 69/F Req #: [id number] Adm Physician: Ordered by: GEOVANNY MULLINS MD Report #: [id number] Location: [facility] Room/Bed: Procedure: [id number] DX/PETER LOCOVIEW (KUB) Exam Date: 06/15/19 Exam Time: 1110 REPORT STATUS: Signed Exam: KUB - 2 views Clinical History: Renal calculus Comparison: Renal ultrasound of 03/07/2019 Findings: No radiographically apparent renal calculi. Non obstructive bowel gas pattern. No free air. Status post cholecystectomy. Gener al changes of the lower lumbar spine and both hip joints. Phleboliths in the p chen. Impression: No radiographically apparent renal calculi. Tracey d by: Jovi Luna MD on 06/15/2019 11:32 AM Dictated By: JOVI LUNA MD [facility] ctronically Signed By: JOVI LNUA MD on 06/15/19 1132 Transcribed By: FAITH leonardo 06/15/19 1132 COPY TO: GEOVANNY MULLINS MD RENAL RETROPERITONEAL [id number] 16:19:00 [place] [address] Patient Name: KAYA KESSLER MR #: [id number] : 1950 Age/Sex: 69/F Req #: [id number] Adm Physician: Ordered by: GEOVANNY MULLINS MD Report #: [id number] Location: Room/Bed: Procedure: [id number] US/US R ENAL RETROPERITONEAL COMP Exam Date: 03/07/19 Exam T silvia: 1305 REPORT STATUS: Signed EXAM: Renal Ultrasound INDICATION: Renal cyst. COMPARISON: Renal ultrasound 03/07/2018. CT abdomen/pelvis with contrast 12/30/2009. TECHNIQU E: Transverse and longitudinal images of the kidneys and bladder were obtained . FINDINGS: Right Kidney: Length: 11.3 cm, the renal cortex measures 1.1 cm Appearance: Normal echogenicity. Collecting system: No hyd ronephrosis Stones: None Cyst/Mass: Minimally complex right lower pole renal cyst with echogenic focus along the wall, measuring up to 1.5 x 1.3 x 1.6 cm, not significantly changed from prior ultrasound on 03/07/2018, when it measured 1.4 x 1.3 x 1.6 cm. No associated doppler flow. Simple appearing cyst in the right lower pole kidney, measuring up to 1.6 x 1.3 x 0.7 cm, increased in size from prior ultrasound, when measured 0.8 x 0.7 x 0.7 cm. No evidence of solid mass. Left Kidney: Length: 12.4 cm, the renal cortex measures 1.8 cm. Appearance: Normal echogenicity. Collecting system: No hydronephrosis S tones: None Cyst/Mass: Unchanged appearance of simple appearing cyst in the up per pole, measuring up to 6.8 x 6.7 x 5.9 cm, previously 6.7 x 6.5 x 6.6 cm. S imilar appearance of left mid pole simple appearing cyst, measuring up to 1.3 x 1.0 x 1.8 cm, previously 1.3 x 1.2 x 1.4 cm, accounting for differences in t echnique. Bladder: Unremarkable in appearance. Bilateral ureteral jets a re seen. The prevoid volume is 76 cc. No post void volume. IMPRESSION: Unchanged appearance of minimally complex right lower pole renal cyst. Follow- up ultrasound is suggested in one year to document stability. Additional bilateral simple appearing renal cysts, with interval increase in size of a ri ght lower pole simple cyst. Signed by: Dr. Lucas Garza MD on 4:35 PM Dictated By: LUCAS GARZA MD 34 Transcribed By: FAITH on 03/07/191634 COPY TO: GEOVANNY MULLINS MD CT BRAIN [id number] 04:30:00 [place] [address] Patient Name: KAYA KESSLER MR #: [id number] : 1950 Age/Sex: 68/F Req #: [id number] Adm Physician: Ordered by: VANCE KHAN MD Report #: [id number] Location: ER Room/Bed: Procedure: [id number] CT/CT BRAIN WO Exam Ezequiel e: 04/25/18 Exam Time: 0335 REPORT STATUS: Sign ed Examination: CT head without contrast Clinical Indication: Dizziness, na usea. Technique: Transaxial noncontrast images from the skull base through the vertex were obtained. Sagittal and coronal reformatted images were done. Co mparison: Head CT dated 01/18/2018. Findings: Scalp: No abnormalities. Bones: Intact. No fractures. No blastic or lytic lesions. Brain sulci: Mild volume loss for patient's age. Ventricles: No hydrocephalus. Extra -axial space: No abnormalities. Parenchyma: Again demonstrated are pat hanh areas of low-attenuation within subcortical and periventricular white shayna er, nonspecific, but could represent microvascular ischemic disease. No mass es, hemorrhage, or acute or chronic cortical based vascular insults. Supras ellar region: No abnormalities. Craniocervical junction: The foramen magnum is patent. No Chiari one malformation. Incidental findings: Atheroscler otic calcification of the cavernous and supraclinoid internal carotid arteries . Impression: 1. No new or acute intracranial finding. No change from prior head CT dated 01/18/2018. 2. Unchanged mild chronic microvascular ischemic change and volume loss. Signed by: Dr. Ray Mendieta M.D. on 4:34 AM Dictated By: RAY SIMS MD 3 Transcribed By: FAITH on 04/25/18433 COPY TO: VANCE KHAN MD CHEST SINGLE (PORTABLE)2018-04-25 04:20:00 [place] [address] Patient Name: KAYA KESSLER MR #: [id number] : 1950 Age/Sex: 68/F Req #: [id number] Adm Physician: Ordered by: VANCE KHAN MD Report #: [id number] Location: ER Room/Bed: Procedure: [id number] DX/CHEST SINGLE (PORTABL E) Exam Date: 04/25/18 Exam Time: 354 REPORT STATUS: Signed EXAM: CHEST SINGLE (PORTABLE), AP 1 view INDICATION: DISI COMPARISON: None FINDINGS: LINES/TUBES: None LUNGS: Mild bibasil ar atelectasis. PLEURA: No effusions or pneumothorax. HEART AND MEDIAS TINUM: Normal size and contour. BONES AND SOFT TISSUES: No acute findings. IMPRESSION: Mild bibasilar atelectasis. Signed by: Dr. Lety Medrano M.D. on 04/25/2018 4:20 AM Dictated By: LETY MEDRANO MD Danica ctronically Signed By: LETY MEDRANO MD on 04/25/18419 Transcribed By: LEXA Leonardo on 04/25/18419 COPY TO: VANCE KHAN MD Creatine Kinase [id number] 03:38:00* Test Item Value Reference Range Interpretation Comments Creatine Kinase MB (test code = 38602-2) 1.10 0-5.0 [facility] [id number] 03:38:00* Test Item Value Reference Range Interpretation Comments Troponin I (test code = EAE8161) -0.001 0-0.300 [facility] Ngcgy5077-63-82 03:28:00* Test Item Value Reference Range Interpretation Comments Sodium Level (test code = 2951-2) 130 136-145 L [facility]Potassium Fqxxy2335-96-58 03:28:00* Test Item Value Reference Range Interpretation Comments Potassium Level (test code = 2823-3) 3.1 3.5-5.1 L [facility] HospitalChloride Hojxe4292-41-07 03:28:00* Test Item Value Reference Range Interpretation Comments Chloride Level (test code = 2075-0) 92 98-107 L [facility] HospitalCarbon Dioxide Gsvco5659-24-28 03:28:00* Test Item Value Reference Range Interpretation Comments Carbon Dioxide Level (test code = 2028-9) 25 22-29 [facility] HospitalAnion Ihg5244-06-06 03:28:00* Test Item Value Reference Range Interpretation Comments Anion Gap (test code = 90956-5) 16.1 8-16 H [facility] HospitalBlood Urea Qzqcnzfa8343-11-76 03:28:00* Test Item Value Reference Range Interpretation Comments Blood Urea Nitrogen (test code = 3094-0) 9 7-26 [facility] HospitalCreatinine2018-06-18 03:28:00* Test Item Value Reference Range Interpretation Comments Creatinine (test code = 2160-0) 0.68 0.57-1.11 [facility] HospitalBUN/Creatinine Dygiv4652-69-28 03:28:00* Test Item Value Reference Range Interpretation Comments BUN/Creatinine Ratio (test code = 3097-3) 13 6-25 [facility] HospitalEstimat Glomerular Filtration Rate 2018-04-25 03:28:00* Test Item Value Reference Range Interpretation Comments Estimat Glomerular Filtration Rate (test code = 23590-6) 60- >60 Ranges were taken from the National Kidney Disease Education Program and the [facility] literature.Reference ranges:60 or greater: Divakz44-99 ( for 3 consecutive months): Chronic kidney disease 15 or less: Kidney failureCHI Baptist Saint Anthony'S HospitalGlucose Jfjur1157-16-57 03:28:00* Test Item Value Reference Range Interpretation Comments Glucose Level (test code = ZJF3674) 147 74-118 H [facility] HospitalCalcium Ujlqf7478-57-74 03:28:00* Test Item Value Reference Range Interpretation Comments Calcium Level (test code = 87565-9) 9.4 8.4-10.2 [facility] HospitalTotal Rpzfygsuz0043-93-24 03:28:00* Test Item Value Reference Range Interpretation Comments Total Bilirubin (test code = 1975-2) 0.5 0.2-1.2 [facility] HospitalAspartate Amino Transf (AST/SGOT) 2018-04-25 03:28:00* Test Item Value Reference Range Interpretation Comments Aspartate Amino Transf (AST/SGOT) (test code = Aspartate Amino Transf (AST/SGOT)) 17 5-34 [facility] HospitalAlanine Aminotransferase (ALT/SGPT) 2018-04-25 03:28:00* Test Item Value Reference Range Interpretation Comments Alanine Aminotransferase (ALT/SGPT) (test code = 1742-6) 15 0-55 [facility] HospitalTotal Gagvfqq8414-67-48 03:28:00* Test Item Value Reference Range Interpretation Comments Total Protein (test code = 2885-2) 8.0 6.5-8.1 [facility] HospitalAlbumin2018-06-18 03:28:00* Test Item Value Reference Range Interpretation Comments Albumin (test code = 1751-7) 4.4 3.5-5.0 [facility] HospitalGlobulin2018-06-18 03:28:00* Test Item Value Reference Range Interpretation Comments Globulin (test code = 27190-3) 3.6 2.3-3.5 H [facility] HospitalAlbumin/Globulin Hfxbp4237-06-52 03:28:00 * Test Item Value Reference Range Interpretation Comments Albumin/Globulin Ratio (test code = 1759-0) 1.2 0.8-2.0 [facility] HospitalAlkaline Kxueuwdrykq4110-64-25 03:28:00* Test Item Value Reference Range Interpretation Comments Alkaline Phosphatase (test code = 6768-6) 95 40-150 [facility] HospitalCreatine Ftyuzg8553-33-93 03:28:00* Test Item Value Reference Range Interpretation Comments Creatine Kinase (test code = 2157-6) 81 29-168 [facility] HospitalUrine Entpq2424-85-40 03:25:00* Test Item Value Reference Range Interpretation Comments Urine Color (test code = 5778-6) YELLOW YELLOW [facility] HospitalUrine Pnajfuv7567-57-48 03:25:00* Test Item Value Reference Range Interpretation Comments Urine Clarity (test code = 91439-7) CLEAR CLEAR [facility] HospitalUrine Specific Okunahb3744-04-21 03:25:00 * Test Item Value Reference Range Interpretation Comments Urine Specific Monona (test code = 5811-5) 1.015 1.010-1.02 5 [facility] HospitalUrine mF6672-06-00 03:25:00* Test Item Value Reference Range Interpretation Comments Urine pH (test code = 59482-2) 8 5-7 H [facility] HospitalUrine Leukocyte Nytfdgpv7407-18-61 03:25:00* Test Item Value Reference Range Interpretation Comments Urine Leukocyte Esterase (test code = 5799-2) NEGATIVE NEGATIVE [facility] HospitalUrine Xcrtuql9567-70-13 03:25:00* Test Item Value Reference Range Interpretation Comments Urine Nitrite (test code = 99512-2) NEGATIVE NEGATIVE [facility] HospitalUrine Hdrtjbz6305-85-34 03:25:00* Test Item Value Reference Range Interpretation Comments Urine Protein (test code = 5804-0) TRACE NEGATIVE H [facility] HospitalUrine Glucose (UA)2018-04-25 03:25:00* Test Item Value Reference Range Interpretation Comments Urine Glucose (UA) (test code = 2349-9) NEGATIVE NEGATIVE [facility] HospitalUrine Rhhbpeg9930-87-96 03:25:00* Test Item Value Reference Range Interpretation Comments Urine Ketones (test code = 88830-8) 1+ NEGATIVE H [facility] HospitalUrine Pxyrmtmrktsx7473-14-28 03:25:00* Test Item Value Reference Range Interpretation Comments Urine Urobilinogen (test code = 86887-8) 0.2 0.2-1 [facility] HospitalUrine Tcpudtrar7469-12-21 03:25:00* Test Item Value Reference Range Interpretation Comments Urine Bilirubin (test code = 1978-6) NEGATIVE NEGATIVE [facility] HospitalUrine Rqzbl5016-69-27 03:25:00* Test Item Value Reference Range Interpretation Comments Urine Blood (test code = 29439-2) TRACE NEGATIVE H [facility] HospitalUrine FFX1318-90-13 03:25:00* Test Item Value Reference Range Interpretation Comments Urine WBC (test code = 5821-4) 0-5 0-5 [facility] HospitalUrine MAQ5323-33-11 03:25:00* Test Item Value Reference Range Interpretation Comments Urine RBC (test code = 11866-9) 6-10 0-5 H [facility] HospitalUrine Vzvoebqj2301-28-38 03:25:00* Test Item Value Reference Range Interpretation Comments Urine Bacteria (test code = 36538-6) NONE NONE [facility] HospitalUrine Epithelial Kbunk3195-72-33 03:25:00 * Test Item Value Reference Range Interpretation Comments Urine Epithelial Cells (test code = 99019-4) FEW NONE [facility] HospitalWhite Blood Ukibk0633-74-53 03:11:00* Test Item Value Reference Range Interpretation Comments White Blood Count (test code = 6690-2) 7.58 4.8-10.8 [facility] HospitalRed Blood Ejukz1277-32-26 03:11:00* Test Item Value Reference Range Interpretation Comments Red Blood Count (test code = 789-8) 4.73 3.6-5.1 [facility] HospitalHemoglobin2018-06-18 03:11:00* Test Item Value Reference Range Interpretation Comments Hemoglobin (test code = 29289-8) 13.3 12.0-16.0 [facility] HospitalHematocrit2018-06-18 03:11:00* Test Item Value Reference Range Interpretation Comments Hematocrit (test code = 4544-3) 38.5 34.2-44.1 [facility] HospitalMean Corpuscular Xowcno6772-97-03 03:11:00* Test Item Value Reference Range Interpretation Comments Mean Corpuscular Volume (test code = 787-2) 81.4 81-99 [facility] HospitalMean Corpuscular Vurnqonpom4283-79-28 03:11:00* Test Item Value Reference Range Interpretation Comments Mean Corpuscular Hemoglobin (test code = 785-6) 28.1 28-32 [facility] HospitalMean Corpuscular Hemoglobin Concent 2018-04-25 03:11:00* Test Item Value Reference Range Interpretation Comments Mean Corpuscular Hemoglobin Concent (test code = 786-4) 34.5 31-35 [facility] HospitalRed Cell Distribution Irvlz3594-34-67 03:11:00* Test Item Value Reference Range Interpretation Comments Red Cell Distribution Width (test code = 53315-5) 12.7 11.7 -14.4 [facility] HospitalPlatelet Stlyy9048-00-93 03:11:00* Test Item Value Reference Range Interpretation Comments Platelet Count (test code = 777-3) 289 140-360 [facility] HospitalNeutrophils (%) (Auto)2018-04-25 03:11:00 * Test Item Value Reference Range Interpretation Comments Neutrophils (%) (Auto) (test code = 90621-6) 69.1 38.7-80.0 [facility] HospitalLymphocytes (%) (Auto)2018-04-25 03:11:00 * Test Item Value Reference Range Interpretation Comments Lymphocytes (%) (Auto) (test code = 736-9) 18.3 18.0-39.1 [facility] HospitalMonocytes (%) (Auto)2018-04-25 03:11:00* Test Item Value Reference Range Interpretation Comments Monocytes (%) (Auto) (test code = 5905-5) 9.5 4.4-11.3 [facility] HospitalEosinophils (%) (Auto)2018-04-25 03:11:00 * Test Item Value Reference Range Interpretation Comments Eosinophils (%) (Auto) (test code = 713-8) 0.7 0.0-6.0 [facility] HospitalBasophils (%) (Auto)2018-04-25 03:11:00* Test Item Value Reference Range Interpretation Comments Basophils (%) (Auto) (test code = 706-2) 0.4 0.0-1.0 [facility] HospitalIM GRANULOCYTES %2018-04-25 03:11:00* Test Item Value Reference Range Interpretation Comments IM GRANULOCYTES % (test code = IM GRANULOCYTES %) 2.0 0.0- 1.0 H [facility] HospitalNeutrophils # (Auto)2018-04-25 03:11:00* Test Item Value Reference Range Interpretation Comments Neutrophils # (Auto) (test code = 751-8) 5.2 2.1-6.9 [facility] HospitalLymphocytes # (Auto)2018-04-25 03:11:00* Test Item Value Reference Range Interpretation Comments Lymphocytes # (Auto) (test code = 60131-4) 1.4 1.0-3.2 [facility] HospitalMonocytes # (Auto)2018-04-25 03:11:00* Test Item Value Reference Range Interpretation Comments Monocytes # (Auto) (test code = 742-7) 0.7 0.2-0.8 [facility] HospitalEosinophils # (Auto)2018-04-25 03:11:00* Test Item Value Reference Range Interpretation Comments Eosinophils # (Auto) (test code = 711-2) 0.1 0.0-0.4 [facility] HospitalBasophils # (Auto)2018-04-25 03:11:00* Test Item Value Reference Range Interpretation Comments Basophils # (Auto) (test code = 704-7) 0.0 0.0-0.1 [facility] HospitalAbsolute Immature Granulocyte (auto 2018-04-25 03:11:00* Test Item Value Reference Range Interpretation Comments Absolute Immature Granulocyte (auto (anish t code = Absolute Immature Granulocyte (auto) 0.15 0-0.1 H [facility] HospitalDifferential Total Cells Counted 2018-01-18 19:20:00* Test Item Value Reference Range Interpretation Comments Differential Total Cells Counted (test code = Differen tial Total Cells Counted) 100 [facility] HospitalNeutrophils % (Manual)2018-01-18 19:20:00 * Test Item Value Reference Range Interpretation Comments Neutrophils % (Manual) (test code = 78090-8) 63 40-74 [facility] HospitalLymphocytes % (Manual)2018-01-18 19:20:00 * Test Item Value Reference Range Interpretation Comments Lymphocytes % (Manual) (test code = 737-7) 18 19-48 L [facility] HospitalMonocytes % (Manual)2018-01-18 19:20:00* Test Item Value Reference Range Interpretation Comments Monocytes % (Manual) (test code = 744-3) 11 3.4-9.0 H [facility] HospitalEosinophils % (Manual)2018-01-18 19:20:00 * Test Item Value Reference Range Interpretation Comments Eosinophils % (Manual) (test code = 714-6) 5 0-7 [facility] HospitalReactive Ytdehewyqyq3536-77-19 19:20:00* Test Item Value Reference Range Interpretation Comments Reactive Lymphocytes (test code = 12799-1) 3 [facility] HospitalPlatelet Tcejovbi3799-39-26 19:20:00* Test Item Value Reference Range Interpretation Comments Platelet Estimate (test code = 78588-6) ADEQUATE [facility] HospitalPlatelet Morphology Jsphneo6708-21-02 19:20:00* Test Item Value Reference Range Interpretation Comments Platelet Morphology Comment (test code = 31227-5) NORMAL [facility] HospitalRed Cell Morphology Lhcwaun4890-62-76 19:20:00* Test Item Value Reference Range Interpretation Comments Red Cell Morphology Comment (test code = 6742-1) NORMAL [facility] HospitalDifferential Total Cells Counted 2018-01-18 19:20:00* Test Item Value Reference Range Interpretation Comments Differential Total Cells Counted (test code = Differen tial Total Cells Counted) 100 [facility] HospitalNeutrophils % (Manual)2018-01-18 19:20:00 * Test Item Value Reference Range Interpretation Comments Neutrophils % (Manual) (test code = 58950-1) 63 40-74 [facility] HospitalLymphocytes % (Manual)2018-01-18 19:20:00 * Test Item Value Reference Range Interpretation Comments Lymphocytes % (Manual) (test code = 737-7) 18 19-48 L [facility] HospitalMonocytes % (Manual)2018-01-18 19:20:00* Test Item Value Reference Range Interpretation Comments Monocytes % (Manual) (test code = 744-3) 11 3.4-9.0 H [facility] HospitalEosinophils % (Manual)2018-01-18 19:20:00 * Test Item Value Reference Range Interpretation Comments Eosinophils % (Manual) (test code = 714-6) 5 0-7 [facility] HospitalReactive Rzwpqeggjtx1826-29-56 19:20:00* Test Item Value Reference Range Interpretation Comments Reactive Lymphocytes (test code = 15405-0) 3 [facility] HospitalPlatelet Zwyikitb9072-01-93 19:20:00* Test Item Value Reference Range Interpretation Comments Platelet Estimate (test code = 77651-9) ADEQUATE [facility] HospitalPlatelet Morphology Uzqkkum9725-66-23 19:20:00* Test Item Value Reference Range Interpretation Comments Platelet Morphology Comment (test code = 59680-8) NORMAL [facility] HospitalRed Cell Morphology Wzbggmx3863-60-31 19:20:00* Test Item Value Reference Range Interpretation Comments Red Cell Morphology Comment (test code = 6742-1) NORMAL [facility] HospitalCreatine Kinase RE6038-60-92 18:31:00* Test Item Value Reference Range Interpretation Comments Creatine Kinase MB (test code = 34795-4) 1.30 0-5.0 [facility] HospitalTroponin E8805-90-38 18:31:00* Test Item Value Reference Range Interpretation Comments Troponin I (test code = UER8008) -0.001 0-0.300 [facility] HospitalUrine ZUO1938-57-50 18:30:00* Test Item Value Reference Range Interpretation Comments Urine WBC (test code = 5821-4) 0-5 0-5 [facility] HospitalUrine HSY6976-65-28 18:30:00* Test Item Value Reference Range Interpretation Comments Urine RBC (test code = 85315-5) 6-10 0-5 H [facility] HospitalUrine Ztxqgjom9752-05-96 18:30:00* Test Item Value Reference Range Interpretation Comments Urine Bacteria (test code = 67789-7) RARE NONE [facility] HospitalUrine Epithelial Fvpkz7639-07-67 18:30:00 * Test Item Value Reference Range Interpretation Comments Urine Epithelial Cells (test code = 01390-6) FEW NONE [facility] HospitalUrine Hnmps4845-66-41 18:30:00* Test Item Value Reference Range Interpretation Comments Urine Mucus (test code = 8247-9) FEW RARE H [facility] HospitalUrine Gkemj5334-19-56 18:30:00* Test Item Value Reference Range Interpretation Comments Urine Mucus (test code = 8247-9) FEW RARE H [facility] Center[facility] Gmdoo1778-60-40 18:25:00* Test Item Value Reference Range Interpretation Comments Sodium Level (test code = 2951-2) 139 136-145 [facility] HospitalPotassium Oigej7426-35-62 18:25:00* Test Item Value Reference Range Interpretation Comments Potassium Level (test code = 2823-3) 3.5 3.5-5.1 [facility] HospitalChloride Dqmfg0745-85-11 18:25:00* Test Item Value Reference Range Interpretation Comments Chloride Level (test code = 2075-0) 102 98-107 [facility] HospitalCarbon Dioxide Nlyxr0970-79-05 18:25:00* Test Item Value Reference Range Interpretation Comments Carbon Dioxide Level (test code = 2028-9) 28 22-29 [facility] HospitalAnion Edl2840-66-99 18:25:00* Test Item Value Reference Range Interpretation Comments Anion Gap (test code = 71308-3) 12.5 8-16 [facility] HospitalBlood Urea Fhflgzli2878-73-03 18:25:00* Test Item Value Reference Range Interpretation Comments Blood Urea Nitrogen (test code = 3094-0) 13 7-26 [facility] HospitalCreatinine2018-03-13 18:25:00* Test Item Value Reference Range Interpretation Comments Creatinine (test code = 2160-0) 0.81 0.57-1.11 [facility] HospitalBUN/Creatinine Fsixs7430-02-71 18:25:00* Test Item Value Reference Range Interpretation Comments BUN/Creatinine Ratio (test code = 3097-3) 16 6- [facility] HospitalEstimat Glomerular Filtration Rate 2018-01-18 18:25:00* Test Item Value Reference Range Interpretation Comments Estimat Glomerular Filtration Rate (test code = 83711-7) 60- >60 Ranges were taken from the National Kidney Disease Education Program and the [facility] literature.Reference ranges:60 or greater: Yybatb99-97 ( for 3 consecutive months): Chronic kidney disease 15 or less: Kidney failureC[facility] Emergency HospitalGlucose Vskrp2142-57-05 18:25:00* Test Item Value Reference Range Interpretation Comments Glucose Level (test code = XPE0108) 113 74-118 [facility] HospitalCalcium Xzcre2604-32-13 18:25:00* Test Item Value Reference Range Interpretation Comments Calcium Level (test code = 83047-0) 9.6 8.4-10.2 [facility] Kbcnkzvzl7513-56-40 18:25:00* Test Item Value Reference Range Interpretation Comments Total Bilirubin (test code = 1975-2) 0.4 0.2-1.2 [facility] HospitalAspartate Amino Transf (AST/SGOT) 2018-01-18 18:25:00* Test Item Value Reference Range Interpretation Comments Aspartate Amino Transf (AST/SGOT) (test code = Aspartate Amino Transf (AST/SGOT)) 18 5-34 [facility]Alanine Aminotransferase (ALT/SGPT) 2018-01-18 18:25:00* Test Item Value Reference Range Interpretation Comments Alanine Aminotransferase (ALT/SGPT) (test code = 1742-6) 17 0-55 [facility] Loekmun1729-44-59 18:25:00* Test Item Value Reference Range Interpretation Comments Total Protein (test code = 2885-2) 8.1 6.5-8.1 [facility]Albumin2018-03-13 18:25:00* Test Item Value Reference Range Interpretation Comments Albumin (test code = 1751-7) 4.5 3.5-5.0 [facility]Globulin2018-03-13 18:25:00* Test Item Value Reference Range Interpretation Comments Globulin (test code = 35676-9) 3.6 2.3-3.5 H [facility]Albumin/Globulin Cdmmr2279-99-61 18:25:00 * Test Item Value Reference Range Interpretation Comments Albumin/Globulin Ratio (test code = 1759-0) 1.3 0.8-2.0 [facility] HospitalAlkaline Fyrlackykxf0230-73-29 18:25:00* Test Item Value Reference Range Interpretation Comments Alkaline Phosphatase (test code = 6768-6) 73 40-150 [facility]Creatine Evtpay1213-36-28 18:25:00* Test Item Value Reference Range Interpretation Comments Creatine Kinase (test code = 2157-6) 58 29-168 [facility] Bewbx4841-75-34 18:21:00* Test Item Value Reference Range Interpretation Comments Urine Color (test code = 5778-6) YELLOW YELLOW [facility] Hhepttg3878-02-00 18:21:00* Test Item Value Reference Range Interpretation Comments Urine Clarity (test code = 41236-7) CLEAR CLEAR [facility] Specific Rawxvoo7691-45-67 18:21:00 * Test Item Value Reference Range Interpretation Comments Urine Specific Monona (test code = 5811-5) 1.010 1.010-1.02 5 [facility] yR2158-26-63 18:21:00* Test Item Value Reference Range Interpretation Comments Urine pH (test code = 15753-0) 7 5-7 [facility] Leukocyte Dwxrswye0832-52-83 18:21:00* Test Item Value Reference Range Interpretation Comments Urine Leukocyte Esterase (test code = 5799-2) NEGATIVE NEGATIVE [facility] Wdbxthj7569-96-76 18:21:00* Test Item Value Reference Range Interpretation Comments Urine Nitrite (test code = 62209-4) NEGATIVE NEGATIVE [facility] Gxrtrnd8835-63-05 18:21:00* Test Item Value Reference Range Interpretation Comments Urine Protein (test code = 5804-0) NEGATIVE NEGATIVE [facility] Glucose (UA)2018-01-18 18:21:00* Test Item Value Reference Range Interpretation Comments Urine Glucose (UA) (test code = 2349-9) NEGATIVE NEGATIVE [facility] Ygtjuaz2261-31-53 18:21:00* Test Item Value Reference Range Interpretation Comments Urine Ketones (test code = 81279-8) NEGATIVE NEGATIVE [facility] Lknvbqazutkd0593-22-66 18:21:00* Test Item Value Reference Range Interpretation Comments Urine Urobilinogen (test code = 16244-9) 0.2 0.2-1 [facility] Ivzkytnsq7504-44-20 18:21:00* Test Item Value Reference Range Interpretation Comments Urine Bilirubin (test code = 1978-6) NEGATIVE NEGATIVE [facility] Docji6824-58-46 18:21:00* Test Item Value Reference Range Interpretation Comments Urine Blood (test code = 95429-3) TRACE NEGATIVE H [facility] HospitalWhite Blood Zqoqk0549-43-86 18:03:00* Test Item Value Reference Range Interpretation Comments White Blood Count (test code = 6690-2) 7.85 4.8-10.8 [facility] Blood Sxunp8102-90-43 18:03:00* Test Item Value Reference Range Interpretation Comments Red Blood Count (test code = 789-8) 4.84 3.6-5.1 [facility] HospitalHemoglobin2018-03-13 18:03:00* Test Item Value Reference Range Interpretation Comments Hemoglobin (test code = 26867-2) 13.7 12.0-16.0 [facility] HospitalHematocrit2018-03-13 18:03:00* Test Item Value Reference Range Interpretation Comments Hematocrit (test code = 4544-3) 39.7 34.2-44.1 [facility] HospitalMean Corpuscular Ibhpxs0395-95-86 18:03:00* Test Item Value Reference Range Interpretation Comments Mean Corpuscular Volume (test code = 787-2) 82.0 81-99 [facility]Mean Corpuscular Zdpapatzre9957-50-75 18:03:00* Test Item Value Reference Range Interpretation Comments Mean Corpuscular Hemoglobin (test code = 785-6) 28.3 28-32 [facility]Mean Corpuscular Hemoglobin Concent 2018-01-18 18:03:00* Test Item Value Reference Range Interpretation Comments Mean Corpuscular Hemoglobin Concent (test code = 786-4) 34.5 31-35 [facility]Red Cell Distribution Uxuql3741-43-28 18:03:00* Test Item Value Reference Range Interpretation Comments Red Cell Distribution Width (test code = 68741-0) 13.4 11.7 -14.4 [facility] HospitalPlatelet Cnump8276-84-66 18:03:00* Test Item Value Reference Range Interpretation Comments Platelet Count (test code = 777-3) 329 140-360 [facility] HospitalNeutrophils (%) (Auto)2018-01-18 18:03:00 * Test Item Value Reference Range Interpretation Comments Neutrophils (%) (Auto) (test code = 53900-4) 61.7 38.7-80.0 [facility] HospitalLymphocytes (%) (Auto)2018-01-18 18:03:00 * Test Item Value Reference Range Interpretation Comments Lymphocytes (%) (Auto) (test code = 736-9) 23.2 18.0-39.1 [facility] HospitalMonocytes (%) (Auto)2018-01-18 18:03:00* Test Item Value Reference Range Interpretation Comments Monocytes (%) (Auto) (test code = 5905-5) 10.8 4.4-11.3 [facility] HospitalEosinophils (%) (Auto)2018-01-18 18:03:00 * Test Item Value Reference Range Interpretation Comments Eosinophils (%) (Auto) (test code = 713-8) 0.4 0.0-6.0 [facility] HospitalBasophils (%) (Auto)2018-01-18 18:03:00* Test Item Value Reference Range Interpretation Comments Basophils (%) (Auto) (test code = 706-2) 0.5 0.0-1.0 [facility] HospitalIM GRANULOCYTES %2018-01-18 18:03:00* Test Item Value Reference Range Interpretation Comments IM GRANULOCYTES % (test code = IM GRANULOCYTES %) 3.4 0.0- 1.0 H [facility] HospitalNeutrophils # (Auto)2018-01-18 18:03:00* Test Item Value Reference Range Interpretation Comments Neutrophils # (Auto) (test code = 751-8) 4.8 2.1-6.9 [facility] HospitalLymphocytes # (Auto)2018-01-18 18:03:00* Test Item Value Reference Range Interpretation Comments Lymphocytes # (Auto) (test code = 75977-3) 1.8 1.0-3.2 [facility] HospitalMonocytes # (Auto)2018-01-18 18:03:00* Test Item Value Reference Range Interpretation Comments Monocytes # (Auto) (test code = 742-7) 0.9 0.2-0.8 H [facility] HospitalEosinophils # (Auto)2018-01-18 18:03:00* Test Item Value Reference Range Interpretation Comments Eosinophils # (Auto) (test code = 711-2) 0.0 0.0-0.4 [facility] HospitalBasophils # (Auto)2018-01-18 18:03:00* Test Item Value Reference Range Interpretation Comments Basophils # (Auto) (test code = 704-7) 0.0 0.0-0.1 [facility] HospitalAbsolute Immature Granulocyte (auto 2018-01-18 18:03:00* Test Item Value Reference Range Interpretation Comments Absolute Immature Granulocyte (auto (anish t code = Absolute Immature Granulocyte (auto) 0.27 0-0.1 H [facility] HospitalUS RE[facility] RETROPERITONE[facility] COMP [place] [address] Patient Name: KAYA KESSLER MR #: [id number] : 0 1950 Age/Sex: 68/F Req #: [id number] Adm Physician: Ordered by: GEOVANNY MULLINS MD Report #: [id number] Location: Room/Bed: Procedure: [id number] US/US RENAL RETROPERITONEAL COMP Exam Date: Exam Time: REPORT STATUS: Signed PROCEDURE: US RETROPERITONEAL ( KIDNEY ). COMPARISON: Report from an MR CP 04/30/2014 was available for review.. INDICATIONS: Cyst Of Kidney TECHNI QUE: Cortez-scale and color sonographic images of the bilateral kidneys and tanvir dder where obtained in transverse and longitudinal planes. FINDINGS: RIGHT KIDNEY: 11.4 cm in length, cortical thickness 1.5 cm Cysts: Minim ally complex cyst with an echogenic focus along its wall measuring 1.4 x 1.3 x 1.6 cm. Simple cyst projecting exophytically from the lower pole measures 0 .8 x 0.7 x 0.7 cm. Solid masses: None Stones: Suspected nonobstructing calcu anita measuring 0.4 cm within the renal sinus. Hydronephrosis: None Echogen icity: Normal renal cortical echogenicity. LEFT KIDNEY: 11.4 cm in length, cortical thickness 2.1 cm. Cysts: Simple cyst projecting from the upper p ole measuring 6.7 x 6.5 x 6.6 cm, stable in size in comparison to the report from the MRCP performed at 2014. Additional simple cyst projects from the low er pole and measures 1.3 x 1.2 x 1.4 cm. Solid masses: None Stones: None Hydronephrosis: None Echogenicity: Normal renal cortical echogenicity. Bladder: Unremarkable. Right and left ureteral jets are identified. C ONCLUSION: Bilateral renal cysts measuring up to 6.7 cm on the left. One of the right renal cysts is minimally complex, and followup renal ultrasound in one year should be considered to assess for stability. Dictated by: Hellen Barrios M.D. on 03/07/2018 at 13:17 Electronically approved by: Hellen Barrios M.D. on 03/07/2018 at 13:17 Dictated By: HELLEN BARRIOS MD [id number] Transcribed By: ROSE AMARO on 03/07/18 1317 COPY TO: GEOVANNY MULLINS MD CT BRAIN WO [place] [address] Patient Name: KAYA KESSLER MR #: [id number] : 0 1950 Age/Sex: 67/F Req #: [id number] Adm Physician: Ordered by: REINA CASE WOOD FUEL PELLETIZER Report #: [id number] Location: Room/Be d: Procedure: [id number] CT/CT BRAIN WO Exam Date: Exam Time: 1820 REPORT STATUS: Signed Exam: Head CT without contrast History: Dizziness, headache Comparison sofia dies: Head CT of 11/08/2016 and 03/18/2009. Technique: Axial images were ob tained from the skull base to the vertex. Coronal and sagittal images reconstr ucted from the axial data. Intravenous contrast: None Findings: Scal p: No abnormalities. Bones: No fractures, blastic or lytic lesions. Brain sulci: Mildly prominent. Ventricles: Mild compensatory dilatation no hydroce phalus. Extra-axial spaces: No masses, no fluid collection. Parenc hyma: No mass, acute hemorrhage or acute cortical vascular insults. A few sca ttered hypodensities in the supratentorial white matter are nonspecific but mo st compatible with chronic small vessel ischemic changes. Hypodensities in the anterior limbs of the bilateral internal capsules, head of the right caudate nucleus, bilateral subinsular white matter and in the bifrontal superior fro ntal white matter reflect small chronic lacunar infarcts or possibly anatomica l variant prominent perivascular spaces. Sellar/suprasellar region: No abno rmalities. Craniocervical junction: Patent foramen magnum. No Chiari one malfo rmation. Incidental findings: Atherosclerotic calcifications in the miller tid siphons. IMPRESSION: No acute intracranial abnormalities. No ch anges from the previous head CT of 11/08/2016. Chronic findings: 1. Mild g eneralized volume loss. 2. Mild supratentorial microvascular ischemic changes . Signed by: Dr. Hellen Hightower M.D. on 01/18/2018 6:38 PM Dictated B y: HELLEN HIGHTOWER MD 37 Transcribed By: FAITH on 01/18/181837 COPY TO: REINA CASE NP
--- OUTSIDE RECORDS SUMMARY | 2020-06-22 20:26 | XMS REPORT | Continuity of Care Document ---
Author Author [facility] Organization [employer] Address Unknown Phone Unavailable Care Team Providers Care Extractor Operator Solvent Process Name Role Phone GOGETMi / ?.?? Information [employer] Unavailable Un available Problems Problem Status Onset Date Classification Date Reported Comments Source Hypertension Active 03/15/2014 [facility] Hypothyroidism Active 03/15/2014 [facility] Cervicalgia Active 03/15/2014 [facility] Medications Medication Details Route Status Patient Instructions Ordering Provider Order Date Source Metaxalone 800 MG Oral Tablet ; Start Date: 01/12/2014; End Date: (Active) Active 01/12/2014 [facility] Dexamethasone 4 MG Oral Tablet ; Start Date: 01/12/2014; End Date: 01/22/2014 (Active) Active 01/12/2014 [facility] TraMADol HCl 50 MG Oral Tablet ; Start Date: 01/12/2014; End Date: (Active) Active 01/12/2014 [facility] Levothyroxine Sodium 88 MCG Oral Tablet ; Start Date: ; End Date: (Active) Inactive [facility] Losartan Potassium 25 MG Oral Tablet ; Start Date: ; End Date: (Active) Inactive [facility] Synthroid 88 MCG Oral Tablet (Active) Active [facility] Losartan Potassium 25 MG Oral Tablet (Active) Active [facility] Tylenol TABS (Active) Active [facility] Allergies, Adverse Reactions, Alerts Substance Category Reaction Severity Reaction type Status Date Reported Comments Source No Known Drug Allergies drug a llergy drug aller gy Active [facility] Immunizations Immunization Date Given Site Status Last Updated Comments Source Zoster (Zostavax) 08/25/[address] [facility] Fluzone Intramuscular Injectable 08/25/[address] [facility] Influenza 10/11/[address] [facility] Pneumo 08/30/[address] [facility] Results No Data Provided for This Section Pathology Reports No Data Provided for This Section Diagnostic Reports No Data Provided for This Section Consultation Notes No Data Provided for This Section Discharge Summaries No Data Provided for This Section History and Physicals No Data Provided for This Section Vital Signs No Data Provided for This Section Encounters Location Location Details Encounter Type Encounter Number Reason For Visit Attending Provider ADM Date DC Date Status Source AUDIT [id number] 08/25/2013 08/25/2013 [facility] AUDIT [id number] 08/31/2013 08/31/2013 [facility] AUDIT [id number] 11/14/2013 11/14/2013 [facility] AUDIT [id number] 11/16/2013 11/16/2013 [facility] AUDIT [id number] 11/17/2013 11/17/2013 [facility] AUDIT [id number] 11/24/2013 11/24/2013 [facility] AUDIT [id number] 01/12/2014 01/12/2014 [facility] AUDIT [id number] 03/15/2014 03/15/2014 [facility] ECL, Provi mendel: ARELY NUNES, Status: Pen, Time: 8:00 AM [id number] 03/21/20 14 03/15/2014 [facility] Procedures No Data Provided for This Section Assessment and Plan No Data Provided for This Section Plan of Care Plan of Care Date Source [QL] TSH, 3RD GENERATION W/REFLEX TO FT 4 11/16/2013 Routine 11/16/2013 [facility] Social History Social History Date Source Marital History - Currently (Active) Being A Social Drinker (Active) Never A Smoker (Active) 03/15/2014 [facility] Family History Value Date S ource Maternal history of Breast Cancer (V16.3 ); (Active) 03/15/2014 [facility] Maternal history of Breast Cancer (V16.3 ); (Active) 01/12/2014 [facility] Maternal history of Breast Cancer (V16.3 ); (Active) 11/24/2013 [facility] Maternal history of Breast Cancer (V16.3 ); (Active) 11/17/2013 [facility] Maternal history of Breast Cancer (V16.3 ); (Active) 11/16/2013 [facility] Maternal history of Breast Cancer (V16.3 ); (Active) 11/14/2013 [facility] Maternal history of Breast Cancer (V16.3 ); (Active) 08/31/2013 [facility] Maternal history of Breast Cancer (V16.3 ); (Active) 08/25/2013 [facility] Advance Directives Order Name Results Value Date Source Advance Directives Advance Dir ectives No Advance Directives available. 03/15/2014 [facility] Advance Directives Advance Dir ectives No Advance Directives available. 01/12/2014 [facility] Advance Directives Advance Dir ectives No Advance Directives available. 11/24/2013 [facility] Advance Directives Advance Dir ectives No Advance Directives available. 11/17/2013 [facility] Advance Directives Advance Dir ectives No Advance Directives available. 11/16/2013 [facility] Advance Directives Advance Dir ectives No Advance Directives available. 11/14/2013 [facility] Advance Directives Advance Dir ectives No Advance Directives available. 08/31/2013 [facility] Advance Directives Advance Dir ectives No Advance Directives available. 08/25/2013 [facility] Functional Status No Data Provided for This Section
--- OUTSIDE RECORDS SUMMARY | 2020-06-22 20:26 | XMS REPORT ---
Author Author KAYA Pressley Organization Unknown Address Unknown Phone Care Team Providers Care Swimming Pool Servicer Name Role Phone HuanViviane norris PP Unavailable Reason for Referral No Reason for Referral was given. History of Present Illness No HPI available. Problems * Hypertension (401.9); (Active) * Normal Routine History And Physical Senior Citizen (65-80) (V70.0); ( Active) * Hypothyroidism (244.9); (Active) Medication * Synthroid 88 MCG Oral Tablet; TAKE 1 TABLET DAILY. (Active) * Losartan Potassium 25 MG Oral Tablet; TAKE 1 TABLET DAILY.; Start Date: ; End Date: (Active) Allergies and Adverse Reactions * No [...] 08/30/2008 * Fluzone Intramuscular Injectable (Lot #: [id number]) - Administered on: 08/25/2013 * Zoster (Zostavax) (Lot #: [id number]) - Administered on: 08/25/2013 Family History * Maternal history of Breast Cancer (V16.3); (Active) Social History * Marital History - Currently (Active) * Being A Social Drinker (Active) * Never A Smoker (Active) Advance Directives * No Advance Directives available. Encounters * AUDIT 08/31/2013
--- OUTSIDE RECORDS SUMMARY | 2020-06-22 20:26 | XMS REPORT ---
Author Author KAYA Pressley Organization Unknown Address Unknown Phone Care Team Providers Care Wrapper Hands Sprayer Name Role Phone HuanViviane PP Unavailable Reason for Referral No Reason for Referral was given. History of Present Illness No HPI available. Problems * Hypertension (401.9); (Active) * Normal Routine History And Physical Senior Citizen (65-80) (V70.0); ( Active) * Hypothyroidism (244.9); (Active) Medication * Levothyroxine Sodium 88 MCG Oral Tablet; TAKE 1 TABLET DAILY.; Start Date: ; End Date: (Active) * Losartan Potassium 25 MG Oral [...] 08/30/2008 * Fluzone Intramuscular Injectable (Lot #: [id number]) - Administered on: 08/25/2013 * Zoster (Zostavax) (Lot #: [id number]) - Administered on: 08/25/2013 Family History * Maternal history of Breast Cancer (V16.3); (Active) Social History * Marital History - Currently (Active) * Being A Social Drinker (Active) * Never A Smoker (Active) Advance Directives * No Advance Directives available. Encounters * AUDIT 11/24/2013
--- OUTSIDE RECORDS SUMMARY | 2020-06-22 20:26 | XMS REPORT ---
Author Author KAYA NUNES Organization Unknown Address Unknown Phone Care Team Providers Care Workforce Management Coordinator Name Role Phone ARELY NUNES PP Unavailable Reason for Referral No Reason for Referral was given. History of Present Illness No HPI available. Problems * Hypertension (401.9); (Active) * Normal Routine History And Physical Senior Citizen (65-80) (V70.0); ( Active) * Hypothyroidism (244.9); (Active) Medication * Levothyroxine Sodium 88 MCG Oral Tablet; TAKE 1 TABLET DAILY.NEEDS OFFICE VISIT; Start Date: ; End Date: (Active) * [...] 08/30/2008 * Fluzone Intramuscular Injectable (Lot #: [id number]) - Administered on: 08/25/2013 * Zoster (Zostavax) (Lot #: [id number]) - Administered on: 08/25/2013 Family History * Maternal history of Breast Cancer (V16.3); (Active) Social History * Marital History - Currently (Active) * Being A Social Drinker (Active) * Never A Smoker (Active) Advance Directives * No Advance Directives available. Encounters * AUDIT 11/17/2013
--- OUTSIDE RECORDS SUMMARY | 2020-06-22 20:26 | XMS REPORT ---
Author Author KAYA Pressley Organization Unknown Address Unknown Phone Care Team Providers Care Hydrometeorologist Name Role Phone HuanViviane PP Unavailable Reason [...] 08/30/2008 * Fluzone Intramuscular Injectable (Lot #: [id number]) - Administered on: 08/25/2013 * Zoster (Zostavax) (Lot #: [id number]) - Administered on: 08/25/2013 Family History * Maternal history of Breast Cancer (V16.3); (Active) Social History * Marital History - Currently (Active) * Being A Social Drinker (Active) * Never A Smoker (Active) Treatment Plan * [QL] TSH, 3RD GENERATION W/REFLEX TO FT4 11/16/2013 Routine Advance Directives * No Advance Directives available. Encounters * AUDIT 11/16/2013
--- OUTSIDE RECORDS SUMMARY | 2020-06-22 20:26 | XMS REPORT ---
Author Author KAYA Pressley Organization Unknown Address Unknown Phone Care Team Providers Care Surgical Manager Name Role Phone HuanRory norrisa PP Unavailable Reason for Referral No Reason for Referral was given. History of Present Illness No HPI available. Problems * Hypertension (401.9); (Active) * Normal Routine History And Physical Senior Citizen (65-80) (V70.0); ( Active) * Hypothyroidism (244.9); (Active) * Cervicalgia (723.1); (Active) Medication * Levothyroxine Sodium 88 MCG Oral Tablet; TAKE 1 TABLET DAILY.; Start Date: ; End Date: (Active) * Tylenol TABS (Active) * Metaxalone 800 MG Oral Tablet; TAKE 1 TABLET BEDTIME; Start Date: 01/12/2014; End Date: (Active) * TraMADol HCl 50 MG Oral Tablet; TAKE 1 TABLET EVERY 12 HOURS NEEDED.; Start Date: 01/12/2014; End Date: (Active) Allergies and Adverse Reactions [...] 08/30/2008 * Fluzone Intramuscular Injectable (Lot #: [id number]) - Administered on: 08/25/2013 * Zoster (Zostavax) (Lot #: [id number]) - Administered on: 08/25/2013 Family History * Maternal history of Breast Cancer (V16.3); (Active) Social History * Marital History - Currently (Active) * Being A Social Drinker (Active) * Never A Smoker (Active) Advance Directives * No Advance Directives available. Encounters * AUDIT 03/15/2014 * ECL, Provider: ARELY NUNES, Status: Jayant, Time: 8:00 AM 03/21/2014
--- OUTSIDE RECORDS SUMMARY | 2020-06-22 20:26 | XMS REPORT ---
Author Author KAYA Stafford Organization Unknown Address Unknown Phone Care Team Providers Care Health And Safety Inspector Name Role Phone Delaney Stafford PP Unavailable Reason for Referral No Reason [...] Start Date: 01/12/2014; End Date: (Active) * Dexamethasone 4 MG Oral Tablet; Take one tablet daily X ten days; Start Date: 01/12/2014; End Date: 01/22/2014 (Active) * TraMADol HCl 50 MG Oral [...] 08/30/2008 * Fluzone Intramuscular Injectable (Lot #: [id number]) - Administered on: 08/25/2013 * Zoster (Zostavax) (Lot #: [id number]) - Administered on: 08/25/2013 Family History * Maternal history of Breast Cancer (V16.3); (Active) Social History * Marital History - Currently (Active) * Being A Social Drinker (Active) * Never A Smoker (Active) Advance Directives * No Advance Directives available. Encounters * AUDIT 01/12/2014
[2020-06-22 20:46] VITALS: BP 163/78
== END 2020-06-22 20:47 | disposition home or self-care (01) ==
LOC: ER 18:33
DX: R42 Dizziness and giddiness (principal); I10 Essential (primary) hypertension; E78.5 Hyperlipidemia, unspecified; E03.9 Hypothyroidism, unspecified; M54.9 Dorsalgia, unspecified; G89.29 Other chronic pain; Z86.73 Personal history of transient ischemic attack (TIA), and cerebral infarction without residual deficits
CPT/HCPCS: 36415; 70450; 80053; 81001; 84484; 85025; 93005; 99284

== ENCOUNTER 2021-06-02 12:47 | Emergency (ER) | payer MEDICARE, OTHER ==
[~2021-06-02] VITALS: Ht 165.1 cm; Wt 72.6 kg
[2021-06-02 13:27] LABS: BASOPHILS % 0.3 % (0.0-1.0); EOSINOPHILS % 0.2 % (0.0-6.0); HEMATOCRIT 40.2 % (34.2-44.1); HEMOGLOBIN 13.2 g/dL (12.0-16.0); LYMPHOCYTES # (AUTO) 1.3 (1.0-3.2); LYMPHOCYTES % 20.6 % (18.0-39.1); MEAN CORPUSCULAR HEMOGLOBIN 27.9 pg (28-32); MEAN CORPUSCULAR HGB CONC 32.8 g/dL (31-35); MONOCYTES # (AUTO) 0.8 (0.2-0.8); MONOCYTES % 12.1 % (4.4-11.3); NEUTROPHILS # (AUTO) 4.1 (2.1-6.9); NEUTROPHILS % 65.8 % (38.7-80.0); PLATELET COUNT 318 x10e3/uL (140-360); RED BLOOD COUNT 4.73 x10e6/uL (3.6-5.1); RED CELL DISTRIBUTION WIDTH 13.2 % (11.7-14.4)
[2021-06-02 13:36] LABS: CLARITY,URINE CLEAR (CLEAR); COLOR,URINE YELLOW (YELLOW); KETONES,URINE 1+ (NEGATIVE); LEUKOCYTE ESTERASE ,URINE NEGATIVE (NEGATIVE); NITRITE,URINE NEGATIVE (NEGATIVE); PROTEIN,URINE DIPSTICK NEGATIVE (NEGATIVE); URINE UROBILINOGEN 0.2 mg/dL (0.2 - 1)
[2021-06-02 13:45] LABS: BACTERIA,URINE RARE /HPF; EPITHELIAL CELLS,URINE MANY /LPF; WBC,URINE (MAN) 0-5 /HPF (0-5)
[2021-06-02 13:47] LABS: ALBUMIN 4.2 g/dL (3.5-5.0); ALBUMIN/GLOBULIN RATIO 1.2 (0.8-2.0); ANION GAP 18.1 mmol/L (8-16); CALCIUM 9.6 mg/dL (8.4-10.2); CREATININE, SERUM 0.7 mg/dL (0.57-1.11); POTASSIUM 4.1 mmol/L (3.5-5.1)
== END 2021-06-02 14:49 | disposition home or self-care (01) ==
LOC: ER 13:31
DX: R53.83 Other fatigue (principal)
CPT/HCPCS: 36415; 80053; 81001; 84484; 85025; 93005; 99283